=== PATIENT | female | born 1970 | race Caucasian/White ===

== ENCOUNTER 2017-07-01 10:16 | Emergency (ER) | payer MEDICAID ==
[2017-07-01] MEDS ORDERED: solu-MEDROL 125 MG IV ONE (10:18)
[2017-07-01] MEDS ORDERED: DUONEB 0.5-3 MG/3 ml Neb IH ONE ×2 (10:18→10:22)
[2017-07-01] MEDS ORDERED: Sodium Chloride 0.9% 1000 ML 1,000 ML IV STA (10:18)
[2017-07-01] MEDS ORDERED: PROVENTIL 2.5 MG/3 ML NEB IH ONE ×4 (10:18→12:09)
[2017-07-01] MEDS ORDERED: solu-MEDROL 125 MG ONE (10:26)
[2017-07-01] MEDS ORDERED: Sodium Chloride 0.9% 1000 ML 1,000 ML ONE (10:27)
[2017-07-01 10:31] LABS: Lactic Acid 1.1 (0.4-2.0); VBG BASE EXCESS 6.7 (-2.0-2.0); VBG CARBOXYHEMOGLOBIN 3.8 % T HGB (0.0-6.9); VBG HCO3- 31.3 meq/L (22-28); VBG HEMOGLOBIN 15.3; VBG O2 SATURATION 92.7 (95-100); VBG PCO2 43 mm/Hg (42-55); VBG POTASSIUM 3.7 (3.5-5.1); VBG pH 7.47 (7.32-7.42)
[2017-07-01 10:37] LABS: Granulocyte Absolute (ANC) 4.13 (1.4-6.9); Hematocrit 42.8 % (35-47); Mean Cell Volume 89.7 fl (78-100); Mean Corpuscular Hemoglobin 31.4 pg (26-32); Mean Platelet Volume 9.7 fl (6-9.5); Platelet Count 199 K/mm3 (150-450); Red Blood Count 4.77 M/mm3 (4.1-5.4); Red Cell Distribution Width 12.4 % (11.5-14.0); White Blood Count 6.8 K/mm3 (4.0-10.5)
--- NOTE | 2017-07-01 10:38 | ERPHSYRPT ---
- History of Present Illness Time Seen by Provider: 07/01/17 10:18 Source: patient, family Patient Subjective Stated Complaint: pt STATES SHE HAS BEEN SOB WITH A COUGH FOR THE PAST SEVERAL DAYS. Triage Nursing Assessment: PT PINK, WARM, DRY. LUNG SOUNDS WHEEZING THROUGHOUT. NONPRODUCTIVE COUGH. Physician History: CC: cough Hx: 47 y/o patient of NEYDA Leyva with cough and wheezing. She is a smoker. No longer takes her lung medications. She has been sick for 3-4 days with cough, wheezing. Fever on and Friday. No V/D. Some myalgias. No rash. Worsened dyspnea, wheezing so came to ER. She has hx of sarcoidosis. Prior hysterectomy. Symptoms moderate. Allergies/Adverse Reactions: lidocaine Adverse Reaction (Verified 07/01/17 10:24) Hx Tetanus, Diphtheria Vaccination/Date Given: Yes (UP TO DATE) Hx Influenza Vaccination/Date Given: No Hx Pneumococcal Vaccination/Date Given: No Immunizations Up to Date: Yes - Review of Systems Constitutional: Fever (last week), Malaise, No Chills Eyes: No Symptoms Ears, Nose, & Throat: Nose Congestion Respiratory: Cough, Dyspnea, Wheezing Cardiac: No Chest Pain Abdominal/Gastrointestinal: No Abdominal Pain, No Nausea, No Vomiting, No Diarrhea Genitourinary Symptoms: No Dysuria Skin: No Rash Neurological: No Headache All Other Systems: Reviewed and Negative - Past Medical History Pertinent Past Medical History: No - Past Surgical History Past Surgical History: Yes Female Surgical History: Hysterectomy - Social History Smoking Status: Current every day smoker How long have you smoked: 25 Exposure to second hand smoke: Yes Drug Use: none Patient Lives Alone: No - Female History Hx Now: No - Nursing Vital Signs Nursing Vital Signs: Initial Vital Signs Temperature 98.3 F 07/01/17 10:18 Pulse Rate 99 H 07/01/17 10:18 Respiratory Rate 28 H 07/01/17 10:18 Blood Pressure 160/94 07/01/17 10:18 O2 Sat by Pulse Oximetry 95 07/01/17 10:18 Pain Scale Pain Intensity 0 - Physical Exam General Appearance: alert Eye Exam: PERRL/EOMI Neck Exam: normal inspection, non-tender, supple Respiratory Exam: rhonchi, wheezing Cardiovascular/Chest Exam: normal heart sounds, regular rate/rhythm Abdominal/Gastrointestinal Exam: soft, No tenderness, No distention Extremity Exam: non-tender, normal range of motion, no calf tenderness, no pedal edema Neurologic Exam: alert, oriented x 3, cooperative, sensation nml, No motor deficits Skin Exam: warm, dry, No rash SpO2 Interpretation: normal SpO2: 95 Oxygen Delivery: Room Air - Course Nursing assessment & vital signs reviewed: Yes - Radiology Exams cxr X-ray Interpretation: Teleradiologist Report, Negative Ordered Tests: Active Orders 24 hr Category Date Time Status Feed Crusher STAT Care 07/01/17 10:18 Active IV Insertion STAT Care 07/01/17 10:18 Active Pulse Oximetry (ED) STAT Care 07/01/17 10:18 Active CHEST 1 VIEW (PORTABLE) Stat Exams 07/01/17 10:18 Completed CBC W DIFF Stat Lab 07/01/17 10:30 Completed CMP Stat Lab 07/01/17 10:30 Completed Lactic Acid Stat Lab 07/01/17 10:18 Results MAGNESIUM Stat Lab 07/01/17 10:30 Completed Manual Differential NC Stat Lab 07/01/17 10:30 Completed VENOUS BLOOD GAS Stat Lab 07/01/17 10:18 Results Respiratory Nebulizer STAT RT 07/01/17 10:19 Completed Respiratory Nebulizer STAT RT 07/01/17 11:12 Active Medication Summary Generic Name Dose Route Start Last Admin Trade Name Freq PRN Reason Stop Dose Admin Magnesium Sulfate/Dextrose 100 mls @ 100 mls/hr 07/01/17 11:15 07/01/17 11:49 Magnesium 1 Gm / 100 Ml D5w IV 07/01/17 13:14 100 mls/hr Q1H MAKENZIE Administration Discontinued Medications Generic Name Dose Route Start Last Admin Trade Name Freq PRN Reason Stop Dose Admin Albuterol Sulfate 2.5 mg 07/01/17 10:18 07/01/17 10:45 Proventil 2.5 Mg/3 Ml Neb IH 07/01/17 10:19 2.5 mg STAT ONE Administration Albuterol Sulfate Confirm 07/01/17 10:22 Proventil 2.5 Mg/3 Ml Neb Administered 07/01/17 10:23 Dose 2.5 mg IH .STK-MED ONE Albuterol Sulfate 2.5 mg 07/01/17 11:12 Proventil 2.5 Mg/3 Ml Neb IH 07/01/17 11:13 STAT ONE Albuterol Sulfate Confirm 07/01/17 12:09 Proventil 2.5 Mg/3 Ml Neb Administered 07/01/17 12:10 Dose 2.5 mg IH .STK-MED ONE Albuterol/Ipratropium 3 ml 07/01/17 10:18 07/01/17 10:30 Duoneb 0.5-3 Mg/3 Ml Neb IH 07/01/17 10:19 3 ml STAT ONE Administration Albuterol/Ipratropium Confirm 07/01/17 10:22 Duoneb 0.5-3 Mg/3 Ml Neb Administered 07/01/17 10:23 Dose 3 ml IH .STK-MED ONE Sodium Chloride 1,000 mls @ 999 mls/hr 07/01/17 10:18 07/01/17 10:27 Sodium Chloride 0.9% 1000 Ml IV 07/01/17 11:18 999 mls/hr .Q1H1M STA Administration Sodium Chloride Confirm 07/01/17 10:27 Sodium Chloride 0.9% 1000 Ml Administered 07/01/17 10:28 Dose 1,000 mls @ ud .ROUTE .STK-MED ONE Magnesium Sulfate Confirm 07/01/17 11:21 Magnesium Sulfate 1 Gm/2 Ml Vial Administered 07/01/17 11:22 Dose 2 gm .ROUTE .STK-MED ONE Methylprednisolone Sodium Succinate 125 mg 07/01/17 10:18 07/01/17 10:27 Solu-Medrol 125 Mg IV 07/01/17 10:19 125 mg STAT ONE Administration Methylprednisolone Sodium Succinate Confirm 07/01/17 10:26 Solu-Medrol 125 Mg Administered 07/01/17 10:27 Dose 125 mg .ROUTE .STK-MED ONE Lab/Rad Data: Laboratory Result Diagrams 07/01/17 10:30 07/01/17 10:30 Laboratory Results 07/01/17 07/01/17 07/01/17 Range/Units 10:30 10:30 10:30 WBC 6.8 (4.0-10.5) K/mm3 RBC 4.77 (4.1-5.4) M/mm3 Hgb 15.0 (12.0-16.0) gm/dl Hct 42.8 (35-47) % MCV 89.7 (78-100) fl MCH 31.4 (26-32) pg MCHC 35.0 (32-36) g/dl RDW 12.4 (11.5-14.0) % Plt Count 199 (150-450) K/mm3 MPV 9.7 H (6-9.5) fl Segmented Neutrophils 58 (36.0-66.0) % Lymphocytes (Manual) 36 (24-44) % Monocytes (Manual) 6 (0.0-12.0) % Differential Comment NORMAL Platelet Estimate NORMAL (NORMAL) VBG pH (7.32-7.42) VBG pCO2 at Pat Temp (42-55) mm/Hg VBG pO2 at Pat Temp VBG HCO3 (22-28) meq/L VBG O2 Sat (Melissa) (95-100) VBG Base Excess (-2.0-2.0) VBG Hemoglobin VBG Carboxyhemoglobin (0.0-6.9) % T HGB POC Potassium (3.5-5.1) Sodium 137 (136-145) mEq/L Potassium 3.6 (3.5-5.1) mEq/L Chloride 100 (98-107) mEq/L Carbon Dioxide 27.1 (21-32) mEq/L Anion Gap 13.7 (5-15) MEQ/L BUN 14 (9-20) mg/dL Creatinine 0.72 (0.55-1.30) mg/dl Estimated GFR > 60 ML/MIN Glucose 106 (70-110) MG/DL Lactic Acid (0.4-2.0) Calcium 9.1 (8.5-10.1) mg/dL Magnesium 2.1 (1.8-2.4) mg/dL Total Bilirubin 0.40 (0.2-1.0) mg/dL AST 41 H (15-37) U/L ALT 51 (12-78) U/L Alkaline Phosphatase 166 H (46-116) U/L Serum Total Protein 8.0 (6.4-8.2) gm/dL Albumin 3.8 (3.4-5.0) g/dL Influenza Type A Ag NEGATIVE (NEGATIVE) Influenza Type B Ag NEGATIVE (NEGATIVE) RSV (PCR) NEGATIVE (Negative) 07/01/17 Range/Units 10:18 WBC (4.0-10.5) K/mm3 RBC (4.1-5.4) M/mm3 Hgb (12.0-16.0) gm/dl Hct (35-47) % MCV (78-100) fl MCH (26-32) pg MCHC (32-36) g/dl RDW (11.5-14.0) % Plt Count (150-450) K/mm3 MPV (6-9.5) fl Segmented Neutrophils (36.0-66.0) % Lymphocytes (Manual) (24-44) % Monocytes (Manual) (0.0-12.0) % Differential Comment Platelet Estimate (NORMAL) VBG pH 7.47 H (7.32-7.42) VBG pCO2 at Pat Temp 43 (42-55) mm/Hg VBG pO2 at Pat Temp Pending VBG HCO3 31.3 H* (22-28) meq/L VBG O2 Sat (Melissa) 92.7 L (95-100) VBG Base Excess 6.7 H (-2.0-2.0) VBG Hemoglobin 15.3 VBG Carboxyhemoglobin 3.8 (0.0-6.9) % T HGB POC Potassium 3.7 (3.5-5.1) Sodium (136-145) mEq/L Potassium (3.5-5.1) mEq/L Chloride (98-107) mEq/L Carbon Dioxide (21-32) mEq/L Anion Gap (5-15) MEQ/L BUN (9-20) mg/dL Creatinine (0.55-1.30) mg/dl Estimated GFR ML/MIN Glucose (70-110) MG/DL Lactic Acid 1.1 (0.4-2.0) Calcium (8.5-10.1) mg/dL Magnesium (1.8-2.4) mg/dL Total Bilirubin (0.2-1.0) mg/dL AST (15-37) U/L ALT (12-78) U/L Alkaline Phosphatase (46-116) U/L Serum Total Protein (6.4-8.2) gm/dL Albumin (3.4-5.0) g/dL Influenza Type A Ag (NEGATIVE) Influenza Type B Ag (NEGATIVE) RSV (PCR) (Negative) - Progress Progress Note: 07/01/17 12:21 She is doing better after 3 nebs and steroids. She prefers to go h ome. Will release with instr. Counseled pt/family regarding: lab results, diagnosis, need for follow-up, rad results, smoking cessation - Departure Time of Disposition: 12:22 Departure Disposition: Home Clinical Impression: Acute exacerbation of chronic obstructive pulmonary disease (COPD), Sarcoidosis , Smoker Condition: Stable Critical Care Time: No Referrals: KOBE MONAHAN [Primary Care Provider] - Instructions: Chronic Obstructive Pulmonary Disease, Exacerbation of COPD (DC) , Quitting Smoking Additional Instructions: Rx prednisone. Rx doxycycline. Rx albuterol MDI. See NEYDA Leyva tomorrow at 11:15AM. Return for increased shortness of breath or problems. Stop smoking. Prescriptions: Albuterol Sulfate [Albuterol Sulfate Hfa] 2 puff IH Q4-6HPRN PRN #1 [email or web address] PRN Reason: cough or wheeze Doxycycline Hyclate 100 mg [Vibramycin 100 MG] 1 tab PO BID #20 tab Prednisone 20 mg [Deltasone 20 mg] 2 tab PO DAILY #10 tablet
[2017-07-01 10:57] LABS: ALBUMIN 3.8 g/dL (3.4-5.0); ALKALINE PHOSPHATASE 166 U/L (46-116); ANION GAP 13.7 MEQ/L (5-15); BLOOD UREA NITROGEN 14 mg/dL (9-20); CHLORIDE 100 mEq/L (98-107); Calcium 9.1 mg/dL (8.5-10.1); Carbon Dioxide 27.1 mEq/L (21-32); Creatinine 1 0.72 mg/dl (0.55-1.30); EST GLOMERULAR FILTRATION RATE > 60 ML/MIN; Glucose 106 MG/DL (70-110); MAGNESIUM 2.1 mg/dL (1.8-2.4); Potassium 3.6 mEq/L (3.5-5.1); SGOT/AST 41 U/L (15-37); SGPT/ALT 51 U/L (12-78); SODIUM 137 mEq/L (136-145)
[2017-07-01 10:59] LABS: Lymphocytes 36 % (24-44); Monocyte 6 % (0.0-12.0); Neutrophils 58 % (36.0-66.0); Platelet Estimate NORMAL (NORMAL); Total Cells Counted 100
--- NOTE | 2017-07-01 11:14 | XRAY ---
Indication: Cough. Dyspnea. Comparison: November 14, 2008. Portable chest is now clear. Heart and mediastinal structures within normal limits. Bony thorax intact. Impression: Nonacute chest.
[2017-07-01] MEDS ORDERED: Magnesium Sulfate 1 GM/2 ML VIAL ONE (11:21)
[2017-07-01] MEDS ORDERED: Magnesium 1 Gm / 100 Ml D5W*** 200 ML IV ONE (11:22)
[2017-07-01] MEDS: Magnesium 1 Gm / 100 Ml D5W*** 100 ML IV SCH ×2 (11:23→11:49)
[2017-07-01 12:07] LABS: INFLUENZA A NEGATIVE (NEGATIVE); INFLUENZA B NEGATIVE (NEGATIVE); RESPIRATORY SYNCTIAL VIRUS NEGATIVE (Negative)
[2017-07-01 12:27] VITALS: O2SAT 95
[2017-07-01 13:08] VITALS: BP 116/72; PULSE 89
== END 2017-07-01 13:06 | disposition home or self-care (01) ==
LOC: ED 10:16
DX: J44.1 Chronic obstructive pulmonary disease with (acute) exacerbation (principal); D86.9 Sarcoidosis, unspecified; F17.210 Nicotine dependence, cigarettes, uncomplicated
CPT/HCPCS: 36000; 36415; 71045; 80053; 82805; 83605; 83735; 85025; 87631; 93041; 94640; 96360; 96365; 96374; 99285; J2930; J3475; A9270-GY

== ENCOUNTER 2023-10-26 07:50 | Emergency (ER) | payer OTHER ==
[2023-10-26 08:08] VITALS: TEMP 96.8; O2SAT 97
[2023-10-26] MEDS ORDERED: TORAdol 30 mg Injection ONE (08:14)
[2023-10-26] MEDS: TORAdol 30 mg Injection IM ONE (08:19)
[2023-10-26] MEDS: Norflex 60 MG/2 ML IM ONE (08:22)
--- NOTE | 2023-10-26 08:30 | ERPHSYRPT ---
- History of Present Illness Time Seen by Provider: 10/26/23 08:24 Source: patient Exam Limitations: no limitations Patient Subjective Stated Complaint: Pt helped move a mattress 2 days ago and woke up yesterday with her back hurting Triage Nursing Assessment: Pt brought self to the ER, vitals wnl, rates pain as a 4/10 until she moves and then it is 9/10, pulses normal, skin n/w/d, denies pain with palpatation, reports that if she sits too long the pain goes in her hips as well, denies trauma, pt walked into the ER with a slow stable gait, appears to be in moderate pain Physician History: Pt helped move a mattress 2 days ago and woke up yesterday with her back hurting Patient is 53-year-old female with significant past medical history of arthritis, Hypertension was moving her mattress 2 days ago and yesterday she woke up with the lumbar area back pain which is mainly in the middle part of the lumbar spine area with some spasm on the side. She denies any urinary trouble. She has a hard time getting up and down. She denies any other injury. Timing/Duration: yesterday Method of Injury: lifting Quality: sharp, aching Back Pain Location: lumbar spine Severity of Pain-Max: moderate Severity of Pain-Current: moderate Modifying Factors: Improves With: nothing Associated Symptoms: denies symptoms Previous symptoms: no prior history Allergies/Adverse Reactions: lidocaine Adverse Reaction (Verified 10/26/23 08:08) Home Medications: Buspirone HCl 5 mg [Buspar 5 mg] 10 mg PO DAILY 10/26/23 [History] Lisinopril 20 mg [Zestril 20 MG] 20 mg PO DAILY 10/26/23 [History] Omeprazole 20 mg PO DAILY 10/26/23 [History] Hx Tetanus, Diphtheria Vaccination/Date Given: Yes (UP TO DATE) Hx Influenza Vaccination/Date Given: No Hx Pneumococcal Vaccination/Date Given: No Travel Risk - International Travel Have you traveled outside of the country in past 3 weeks: No - Emerging Infectious Disease Are you exhibiting symptoms associated with any current EIDs: No - Review of Systems Constitutional: No Fever, No Chills Eyes: No Symptoms Ears, Nose, & Throat: No Symptoms Respiratory: No Cough, No Dyspnea Cardiac: No Chest Pain, No Edema, No Syncope Abdominal/Gastrointestinal: No Abdominal Pain, No Nausea, No Vomiting, No Diarrhea Genitourinary Symptoms: No Dysuria Musculoskeletal: Back Pain, No Neck Pain Skin: No Symptoms, No Rash Neurological: No Dizziness, No Focal Weakness, No Sensory Changes Psychological: No Symptoms Endocrine: No Symptoms All Other Systems: Reviewed and Negative - Past Medical History Pertinent Past Medical History: Yes Cardiac History: Hypertension GI Medical History: GERD Psycho-Social History: Anxiety - Past Surgical History Past Surgical History: Yes Female Surgical History: Hysterectomy, Section - Social History Smoking Status: Current every day smoker How long have you smoked: 25 Exposure to second hand smoke: Yes Drug Use: marijuana Patient Lives Alone: No - Nursing Vital Signs Nursing Vital Signs: Initial Vital Signs Temperature 96.8 F 10/26/23 07:59 Pulse Rate 82 10/26/23 07:59 Blood Pressure 125/80 10/26/23 07:59 O2 Sat by Pulse Oximetry 97 10/26/23 07:59 Pain Scale Pain Intensity [] 4 Pain Intensity 4 - Physical Exam General Appearance: no apparent distress, alert Eye Exam: PERRL/EOMI, eyes nml inspection Neck Exam: normal inspection, non-tender, supple, full range of motion, No meningismus, No midline tenderness Respiratory Exam: normal breath sounds, lungs clear, No respiratory distress Cardiovascular Exam: regular rate/rhythm, normal heart sounds Gastrointestinal Exam: soft, No tenderness, No mass Back Exam: decreased range of motion, muscle spasm, No CVA tenderness, No vertebral tenderness, No rash, No point tenderness Extremity Exam: normal inspection, normal range of motion, No calf tenderness, No pedal edema Neurologic Exam: alert, oriented x 3, cooperative, database dba II-XII nml as tested, normal mood/affect, nml station & gait, sensation nml, No motor deficits Skin Exam: normal color, warm, dry, No rash SpO2: 97 - Course Nursing assessment & vital signs reviewed: Yes - Radiology Exams L-Spine X-ray Interpretation: Interpreted by me, Reviewed by me Ordered Tests: Active Orders 24 hr Category Date Time Status LUMBAR COMPLETE (MIN 4 VIEWS) Stat Exams 10/26/23 08:31 Taken Medication Summary Discontinued Medications Generic Name Dose Route Start Last Admin Trade Name Freq PRN Reason Stop Dose Admin Droperidol 1.25 mg 10/26/23 08:16 10/26/23 08:22 Droperidol 5 Mg/2 Ml Vial IM 10/26/23 08:17 1.25 mg STAT ONE Administration Droperidol Confirm 10/26/23 08:20 Droperidol 5 Mg/2 Ml Vial Administered 10/26/23 08:21 Dose 5 mg .ROUTE .STK-MED ONE Ketorolac Tromethamine 60 mg 10/26/23 08:10 10/26/23 08:19 Ketorolac Tromethamine 30 Mg/Ml Inj IM 10/26/23 08:11 60 mg STAT ONE Administration Ketorolac Tromethamine Confirm 10/26/23 08:14 Ketorolac Tromethamine 30 Mg/Ml Inj Administered 10/26/23 08:15 Dose 60 mg .ROUTE .STK-MED ONE Orphenadrine Citrate 60 mg 10/26/23 08:10 10/26/23 08:22 Orphenadrine Citrate 60 Mg/2 Ml Vial IM 10/26/23 08:11 Not Given STAT ONE - Progress Progress: improved, pain not gone completely Counseled pt/family regarding: diagnosis, need for follow-up, rad results Medical Desision Making - Diagnostic Testing Diagnostic test were ordered, analyzed, and reviewed by me: Yes Radiological Interpretation: Interpreted by me, Reviewed by me - Risk of complications Minimal Risk: Minimal risk of morbidity - Departure Departure Disposition: Home Clinical Impression: Acute lumbar back pain Qualifiers: Back pain laterality: midline Sciatica presence: without sciatica Qualified Code(s): M54.50 - Low back pain, unspecified Condition: Stable Critical Care Time: No Referrals: CONNOR ROCA NP [Primary Care Provider] - Follow Up with PCP/3 days Instructions: Low Back Pain (DC) Additional Instructions: Discharge/Care Plan DARIUSSHRUTI CHERRY was seen on 10/26/23 in the Emergency Room. The patient was counseled regarding Diagnosis,Lab results, Imaging studies, need for follow up and when to return to the Emergency Room. Prescriptions given: Discharge Note I have spoken with the patient and/or caregivers. I have explained the patient's condition, diagnosis and treatment plan based on the information available to me at this time. I have answered the patient's and/or caregiver's questions and addressed any concerns. The patient and/or caregivers have as good understanding of the patient's diagnosis, condition and treatment plan as can be expected at this point. The vital signs have been stable. The patient's condition is stable and appropriate for discharge from the emergency department. The patient will pursue further outpatient evaluation with the primary care physician or other designated or consulting physician as outlined in the disc harge instructions. The patient and/or caregivers are agreeable to this plan of care and follow-up instructions have been explained in detail. The patient and/or caregivers have received these instruction. The patient/and or caregivers are aware that any significant change in condition or worsening of symptoms should prompt an immediate return to this or the closest emergency department or call 911. SHRUTI MCCOY was seen on 10/26/23 n the Emergency Room. At that time you were treated for an emergent condition, during your visit Laboratory, Radiology and/or other procedures may have been ordered. It is very important that you follow-up with your Primary Care Physician CONNOR ROCA within the next 24-48 hours to review your Emergency Room visit and the final results of testing that was ordered. Some test results such as Urine Cultures, Blood Cultures, and other cultures if ordered will not be finalized for 24-48 hours. If you do not have a Primary Care Provider please call the medical records department at [phone] ext [phone] to obtain a copy of your results or you may sign into our patient portal to obtain these results by visiting us @ [email or web address] and completing the following steps: 1. Click on the Patient Portal link 2. Click the Patient Self Enrollment Link to complete the enrollment form and entering your 3. Once the enrollment form is completed you will receive an email with a temporary ID and password at the email address you provided. 4. Next choose a user name and password. Your user name must be at least 4 characters long and your password must be at least 4 characters long. 5. Choose a security question from the list and provide your answer to the question. If you already have signed into the Health Portal you may access your Health Care Information 06/01 by the following steps: 1. Login to our website @ [email or web address] 2. Enter your original user name and password. FAQS The [facility] Portal is an online tool that contains your Lab Results, Radi ology Reports, Visit History, Discharge Instructions and Health Summary Lab and Radiology Results will not be available for 72 hours on the portal. The Portal is a secure site, passwords are encryted and URLs are re-written so they cannot be copied and pasted. You and authorized family members are the only ones who can access your Portal. Also there is a timeout feature that protects your information if you leave the Portal page open. If you have technical difficulty please use the Contact Us link on the page this will allow you to submit any questions you have regarding the Portal or you may contact the Medical Record Department at [phone]. Prescriptions: Cyclobenzaprine HCl 10 mg [Flexeril 10 MG] 10 mg PO TID #30 tablet Naproxen 500 mg [Naprosyn 500 MG] 500 mg PO BIDAC #30 tablet
[2023-10-26 09:08] VITALS: BP 134/89
[2023-10-26 09:09] VITALS: PULSE 75; RESP 16
--- NOTE | 2023-10-26 17:49 | XRAY ---
Indication: Pain following lifting injury. Comparison: None 5 view lumbar spine demonstrates 5 lumbar segments in normal alignment with minimal L4-S1 disc space narrowing, minimal aortic calcifications, and mild diffuse colonic fecal stasis. No other bony, articular, or soft tissue abnormalities.
== END 2023-10-26 09:09 | disposition home or self-care (01) ==
LOC: ED 07:50
DX: M54.50 Low back pain, unspecified (principal); I10 Essential (primary) hypertension; Z79.899 Other long term (current) drug therapy; Z72.0 Tobacco use
CPT/HCPCS: 72110; 96372; 99283; J1885

== ENCOUNTER 2024-08-23 16:59 | Observation (INO) | payer OTHER ==
--- NOTE | 2024-08-23 17:59 | ERPHSYRPT ---
- History of Present Illness Time Seen by Provider: 08/23/24 17:58 Source: patient, family Exam Limitations: no limitations Patient Subjective Stated Complaint: Pt states "I habe pneumonia and I am still coughing and I get really short of breath and it really hurts when I cough, feels like fire going up into my neck. I was also given lasix for having fluid around my lungs and I have taken 3 the past three days and I am not peeing very much and I called my and dr. Al told me to come here." Triage Nursing Assessment: Pt presented alert and oriented X 3, skin pwd. Pt ambulates with an upright steady gait, able to speak in clear full sentences. pt resting comfortably on the bed. Pt slightly tachypneic and had SpO2 of 88% initially on room air, pt was placed on 2 lpm supplimental O2 Physician History: This is a 54-year-old white female patient who presents to the emergency department by private vehicle accompanied by family member with a complaint of worsening shortness of breath over the last couple of days. Patient does not ordinarily wear oxygen. On arrival to the emergency department she had a room air oxygen saturation level of 88%. She was placed on 2 L of oxygen via nasal cannula and her oxygen saturation levels went up to approximately 93%. Patient was recently diagnosed with multifocal pneumonia based on a CT scan that was performed approximately 5 days ago at [facility]. She was placed on Levaquin antibiotic. Patient also has stage III melanoma and is receiving chemotherapy for this. Patient does not have chest pain. However, when she coughs she does feel pain in the chest that goes up into her neck on the left side. Patient has a history of gastroesophageal reflux disease, hypertension and anxiety. She has no abdominal pain. She has not had fevers. She has no nausea vomiting or diarrhea symptoms. Patient has a nebulizer machine and the medicine (albuterol) but she has not been using this machine. Timing/Duration: day(s) (In the last couple of days symptoms of shortness of breath are worsening), worse Cough Quality/Degree: mild, dry cough Possible Cause: occasional episodes Modifying Factors: Improves With: coughing Associated Symptoms: chest pain/soreness (With coughing), cough, shortness of breath Allergies/Adverse Reactions: lidocaine Adverse Reaction (Verified 10/26/23 08:08) Home Medications: Buspirone HCl 5 mg [Buspar 5 mg] 10 mg PO DAILY 10/26/23 [History] Lisinopril 20 mg [Zestril 20 MG] 20 mg PO DAILY 10/26/23 [History] Omeprazole 20 mg PO DAILY 10/26/23 [History] Levofloxacin [Levofloxacin 500 MG Tablet] 500 mg PO DAILY 08/23/24 [H istory] Hx Tetanus, Diphtheria Vaccination/Date Given: Yes (UP TO DATE) Hx Influenza Vaccination/Date Given: No Hx Pneumococcal Vaccination/Date Given: No Immunizations Up to Date: No Travel Risk - International Travel Have you traveled outside of the country in past 3 weeks: No - Emerging Infectious Disease Are you exhibiting symptoms associated with any current EIDs: Yes Symptoms: Cough: New Onset, Shortness of Breath (With coughing) - Review of Systems Constitutional: No Symptoms Eyes: No Symptoms Ears, Nose, & Throat: No Symptoms Respiratory: Cough, Dyspnea (With coughing) Cardiac: Chest Pain (With coughing) Abdominal/Gastrointestinal: No Symptoms Genitourinary Symptoms: No Symptoms Musculoskeletal: No Symptoms Skin: No Symptoms Neurological: No Symptoms Psychological: No Symptoms Endocrine: No Symptoms Hematologic/Lymphatic: No Symptoms Immunological/Allergic: No Symptoms All Other Systems: Reviewed and Negative - Past Medical History Pertinent Past Medical History: Yes Neurological History: No Pertinent History ENT History: No Pertinent History Cardiac History: Hypertension Respiratory History: Asthma, COPD Endocrine Medical History: No Pertinent History Musculoskeletal History: No Pertinent History GI Medical History: No Pertinent History History: No Pertinent History Psycho-Social History: Anxiety, Depression Female Reproductive Disorders: No Pertinent History - Past Surgical History Past Surgical History: Yes Female Surgical History: Hysterectomy, Section Other Surgical History: stage 3 melanoma removed from right arm - Social History Smoking Status: Former smoker Exposure to second hand smoke: Yes Drug Use: marijuana - Social Determinants of Health Will the patient participate in the screening: Yes Do you worry about a steady place to live?: No Do you have any problems with any of the following?: No known problems In the past 12 months,have you had to go without utilities?: No Transportation Issues: No Has anyone in your support network made you feel unsafe?: No Have you or anyone in your house had to go w/o enough food: No - Nursing Vital Signs Nursing Vital Signs: Initial Vital Signs Temperature 98.7 F 08/23/24 17:38 Pulse Rate 106 H 08/23/24 17:38 Respiratory Rate 22 08/23/24 17:38 Blood Pressure 125/80 08/23/24 17:38 O2 Sat by Pulse Oximetry 96 08/23/24 17:38 Pain Scale Pain Intensity 0 - Physical Exam General Appearance: no apparent distress, alert, anxiety Eye Exam: PERRL/EOMI, eyes nml inspection Ears, Nose, Throat Exam: normal ENT inspection, moist mucous membranes Neck Exam: normal inspection, non-tender, supple, full range of motion Respiratory Exam: respiratory distress, airway intact, rhonchi (Bilateral diffuse mild), No chest tenderness, No accessory muscle use Cardiovascular Exam: tachycardia (Mild) Gastrointestinal/Abdomen Exam: soft, normal bowel sounds, No tenderness Pelvic Exam: not done Rectal Exam: not done Back Exam: normal inspection, normal range of motion, No CVA tenderness, No vertebral tenderness Extremity Exam: normal inspection, normal range of motion, pelvis stable Neurologic Exam: alert, oriented x 3, cooperative, department director II-XII nml as tested, normal mood/affect, nml cerebellar function, nml station & gait, sensation nml Skin Exam: normal color, warm, dry Lymphatic Exam: No adenopathy SpO2 Interpretation: hypoxic SpO2: 88 O2 Delivery: Room Air - Course Nursing assessment & vital signs reviewed: Yes EKG Interpreted by Me: RATE (100), Sinus Rhythm, NORMAL AXIS, NORMAL INTERVALS, NORMAL QRS, Other (This patient has no acute ischemic changes on today's twelve- lead EKG. QTc is 439) Ordered Tests: Active Orders 24 hr Category Date Time Status EKG-ER Only STAT Care 08/23/24 17:59 Active IV Insertion STAT Care 08/23/24 17:59 Active Pulse Oximetry (ED) STAT Care 08/23/24 17:59 Active CHEST 1 VIEW (PORTABLE) Stat Exams 08/23/24 17:59 Taken CHEST WITH CONTRAST [CT] Stat Exams 08/23/24 20:16 Taken BLOOD CULTURE Stat Lab 08/23/24 18:20 Received CBC W DIFF Stat Lab 08/23/24 18:15 Completed CMP Stat Lab 08/23/24 18:15 Completed D-DIMER QUANTITATIVE Stat Lab 08/23/24 18:15 Completed Lactic Acid Stat Lab 08/23/24 17:59 Completed MAGNESIUM Stat Lab 08/23/24 18:15 Completed NT PRO BNPII Stat Lab 08/23/24 18:15 Completed TROPONIN Q4H Lab 08/23/24 18:15 Completed TROPONIN Q4H Lab 08/24/24 02:00 Ordered Respiratory Therapy Assessment DAILY RT 08/23/24 21:02 Active Medication Summary Generic Name Dose Route Start Last Admin Trade Name Freq PRN Reason Stop Dose Admin Sodium Chloride 500 mls @ 100 mls/hr 08/23/24 20:15 08/23/24 20:21 Sodium Chloride 0.9% 500 Ml IV 08/24/24 01:14 100 mls/hr .Q5H ONE Administration Discontinued Medications Generic Name Dose Route Start Last Admin Trade Name Freq PRN Reason Stop Dose Admin Albuterol/Ipratropium Confirm 08/23/24 20:46 Ipratropium/Albuterol Sulfate 3 Ml Ampul.Neb Administered 08/23/24 20:47 Dose 3 ml IH .STK-MED ONE Albuterol/Ipratropium 3 ml 08/23/24 20:50 08/23/24 21:00 Ipratropium/Albuterol Sulfate 3 Ml Ampul.Neb IH 08/23/24 20:51 3 ml STAT ONE Administration Ceftriaxone Sodium 1 gm in 100 mls @ 200 mls/hr 08/23/24 20:15 08/23/24 20:51 Rocephin 1 Gm / 100 Ml Nacl IV 08/23/24 20:44 Infused STAT ONE Infusion Ceftriaxone Sodium Confirm 08/23/24 20:19 Rocephin 1 Gm / 100 Ml Nacl Administered 08/23/24 20:20 Dose 1 gm in 100 mls @ ud IV .STK-MED ONE Sodium Chloride Confirm 08/23/24 20:19 Sodium Chloride 0.9% 500 Ml Administered 08/23/24 20:20 Dose 500 mls @ ud IV .STK-MED ONE Lab/Rad Data: Laboratory Result Diagrams 08/23/24 18:15 08/23/24 18:15 Laboratory Results 08/23/24 08/23/24 08/23/24 Range/Units 18:20 18:15 18:15 WBC (3.98-10.04) x10^3/uL RBC (3.93-5.22) x10^6/uL Hgb (11.2-15.7) g/dL Hct (34.1-44.9) % MCV (79.4-94.8) fL MCH (25.6-32.2) pg MCHC (32.2-35.5) g/dL RDW (11.7-14.4) % Plt Count (182-369) x10^3/uL MPV (9.4-12.3) fL Gran % (34.0-71.1) % Immature Gran % (Auto) (0.001-0.429) % Nucleat RBC Rel Count (0.00-0.2) % Eos # (Auto) (0.04-0.36) x10^3/uL Immature Gran # (Auto) (0.001-0.031) x10^3u/L Absolute Lymphs (auto) (1.18-3.74) x10^3/uL Absolute Monos (auto) (0.24-0.86) x10^3/uL Absolute Nucleated RBC (0.00-0.012) x10^3u/L Lymphocytes % (19.3-51.7) % Monocytes % (4.7-12.5) % Eosinophils % (0.7-5.8) % Basophils % (0.1-1.2) % Absolute Granulocytes (1.56-6.13) x10^3/uL Basophils # (0.01-0.08) x10^3/uL D-Dimer > 35.20 H* (0.0-0.50) mg/L Sodium (135-145) mmol/L Potassium (3.5-5.1) mmol/L Chloride (98-107) mmol/L Carbon Dioxide (22-30) mmol/L Anion Gap (5-15) MEQ/L BUN (7-17) mg/dL Creatinine (0.52-1.04) mg/dL Estimated GFR ML/MIN Glucose (74-106) mg/dL Lactic Acid (0.4-2.0) Calcium (8.4-10.2) mg/dL Magnesium (1.6-2.3) mg/dL Total Bilirubin (0.2-1.3) mg/dL AST (14-36) U/L ALT (0-35) U/L Alkaline Phosphatase (38-126) U/L Troponin I 0.018 (0.000-0.033) ng/mL NT-Pro-B Natriuret Pep 130 (<300) pg/mL Serum Total Protein (6.3-8.2) g/dL Albumin (3.5-5.0) g/dL Influenza Type A Ag NEGATIVE (NEGATIVE) Influenza Type B Ag NEGATIVE (NEGATIVE) RSV (PCR) NEGATIVE (NEGATIVE) SARS-CoV-2 (PCR) NEGATIVE (NEGATIVE) 08/23/24 08/23/24 08/23/24 Range/Units 18:15 18:15 17:59 WBC 10.2 H (3.98-10.04) x10^3/uL RBC 4.27 (3.93-5.22) x10^6/uL Hgb 11.5 (11.2-15.7) g/dL Hct 35.6 (34.1-44.9) % MCV 83.4 (79.4-94.8) fL MCH 26.9 (25.6-32.2) pg MCHC 32.3 (32.2-35.5) g/dL RDW 14.1 (11.7-14.4) % Plt Count 319 (182-369) x10^3/uL MPV 8.6 L (9.4-12.3) fL Gran % 79.4 H (34.0-71.1) % Immature Gran % (Auto) 0.4 (0.001-0.429) % Nucleat RBC Rel Count 0.0 (0.00-0.2) % Eos # (Auto) 0.15 (0.04-0.36) x10^3/uL Immature Gran # (Auto) 0.04 H (0.001-0.031) x10^3u/L Absolute Lymphs (auto) 0.84 L (1.18-3.74) x10^3/uL Absolute Monos (auto) 0.98 H (0.24-0.86) x10^3/uL Absolute Nucleated RBC 0.00 (0.00-0.012) x10^3u/L Lymphocytes % 8.3 L (19.3-51.7) % Monocytes % 9.6 (4.7-12.5) % Eosinophils % 1.5 (0.7-5.8) % Basophils % 0.8 (0.1-1.2) % Absolute Granulocytes 8.08 H (1.56-6.13) x10^3/uL Basophils # 0.08 (0.01-0.08) x10^3/uL D-Dimer (0.0-0.50) mg/L Sodium 136 (135-145) mmol/L Potassium 3.4 L (3.5-5.1) mmol/L Chloride 98 (98-107) mmol/L Carbon Dioxide 28 (22-30) mmol/L Anion Gap 13.1 (5-15) MEQ/L BUN 16 (7-17) mg/dL Creatinine 0.63 (0.52-1.04) mg/dL Estimated GFR 104.1 ML/MIN Glucose 110 H (74-106) mg/dL Lactic Acid 1.3 (0.4-2.0) Calcium 8.4 (8.4-10.2) mg/dL Magnesium 2.1 (1.6-2.3) mg/dL Total Bilirubin 0.70 (0.2-1.3) mg/dL AST 46 H (14-36) U/L ALT 24 (0-35) U/L Alkaline Phosphatase 121 (38-126) U/L Troponin I (0.000-0.033) ng/mL NT-Pro-B Natriuret Pep (<300) pg/mL Serum Total Protein 6.8 (6.3-8.2) g/dL Albumin 3.3 L (3.5-5.0) g/dL Influenza Type A Ag (NEGATIVE) Influenza Type B Ag (NEGATIVE) RSV (PCR) (NEGATIVE) SARS-CoV-2 (PCR) (NEGATIVE) - Progress Progress: improved, re-examined Air Movement: fair Progress Note: 08/23/24 20:38 My medical decision making in the assignment of moderate complexity to this patient's medical issue today is based on review of the patient's past medical history, reviewed the patient's medication list, reviewed patient drug allergy list, history present illness and physical findings on examination. The workup of this patient includes placement of an intravenous line, CBC, CMP, troponin level, twelve-lead EKG, D-dimer level, chest x-ray, viral swabs. Differential diagnosis includes but is not limited to upper respiratory infection, pneumonia, pulmonary embolus, myocardial infarction, arrhythmias, v iral infection 08/23/24 20:40 I interpreted the patient's laboratory data results. The patient has a normal lactic acid level with a slightly elevated white count and left shift. Her BNP and troponin levels are normal. However, her D-dimer level is significantly elevated, over 35. This may be secondary to pneumonia. However, we will perform a CT scan of the chest with contrast to rule out or rule in a pulmonary embolus. I interpreted the patient's preliminary chest x-ray report. The patient has bilateral diffuse infiltrates. Infiltrate is worse on the left base. The final chest x-ray report was interpreted by the radiologist and I reviewed the impression. The impression states that he agrees with my assessment of bilateral diffuse infiltrates. However, he also states there are bibasilar small pleural effusions 08/23/24 22:[address] scan of the chest with contrast was interpreted by the radiologist and I reviewed the impression. The impression states no comparison films. He also states suboptimal contrast opacification with respiratory artifacts. This limits the PE exam. There is no obvious central pulmonary embolus. There is diffuse bilateral consolidation and nonconsolidating air space disease. This patient now has had 2 chest CTs of the chest with contrast that were both interpreted as not having pulmonary embolus. This second CT scan states that the contrast is suboptimal but they do not see obvious central pulmonary emboli present. 08/23/24 22:[address] Mendoza, the telemetry hospitalist at all and at this time. I reviewed the patient history, presenting complaint, physical findings on examination and workup results as well as her response to our intervention. He agrees that this patient can be placed in observation. We will place her on antibiotics and have respiratory therapy provide her nebulizer/breathing treatments. Blood Culture(s) Obtained: Yes Antibiotics given: Yes Counseled pt/family regarding: lab results, diagnosis, rad results Medical Desision Making - Independent Historian Additional History obtained from: Family - Diagnostic Testing Diagnostic test were ordered, analyzed, and reviewed by me: Yes Radiological Interpretation: Interpreted by me, Reviewed by me, Teleradiologist Report - Risk of complications The pt has a high risk of morbidity or mortality based on: Decision regarding hospitilization or escalation of hosp level of care - Departure Departure Disposition: Observation Clinical Impression: Hypoxia, Pneumonia Condition: Fair Critical Care Time: Yes Critical Care Time(excluding separately billable procedures): Critical 30-74 mins (45) Referrals: CONNOR ROCA NP [Primary Care Provider] - Follow up/PCP as directed
[2024-08-23 18:28] LABS: Absolute Neutrophil Ct (ANC) 8.08 x10^3/uL (1.56-6.13); BASOPHIL % 0.8 % (0.1-1.2); Basophil (Absolute #) 0.08 x10^3/uL (0.01-0.08); Eosinophil % 1.5 % (0.7-5.8); Eosinophil (Absolute #) 0.15 x10^3/uL (0.04-0.36); Hematocrit 35.6 % (34.1-44.9); Hemoglobin 11.5 g/dL (11.2-15.7); IMMATURE GRAN # 0.04 x10^3u/L (0.001-0.031); IMMATURE GRAN % 0.4 % (0.001-0.429); Lymphocyte (Absolute #) 0.84 x10^3/uL (1.18-3.74); Lymphocytes % 8.3 % (19.3-51.7); Mean Cell Volume 83.4 fL (79.4-94.8); Mean Corpuscular Hemoglobin 26.9 pg (25.6-32.2); Mean Corpuscular Hgb Concent. 32.3 g/dL (32.2-35.5); Mean Platelet Volume 8.6 fL (9.4-12.3); Monocyte (Absolute #) 0.98 x10^3/uL (0.24-0.86); Monocytes % 9.6 % (4.7-12.5); Neutrophil % 79.4 % (34.0-71.1); Platelet Count 319 x10^3/uL (182-369); Red Blood Count 4.27 x10^6/uL (3.93-5.22); Red Cell Distribution Width 14.1 % (11.7-14.4); White Blood Count 10.2 x10^3/uL (3.98-10.04)
[2024-08-23 18:42] LABS: ALBUMIN 3.3 g/dL (3.5-5.0); ANION GAP 13.1 MEQ/L (5-15); BILIRUBIN,TOTAL 0.7 mg/dL (0.2-1.3); Calcium 8.4 mg/dL (8.4-10.2); Creatinine 1 0.63 mg/dL (0.52-1.04); EST GLOMERULAR FILTRATION RATE 104.1 ML/MIN; MAGNESIUM 2.1 mg/dL (1.6-2.3); Potassium 3.4 mmol/L (3.5-5.1); Total Protein 6.8 g/dL (6.3-8.2)
[2024-08-23 18:53] LABS: TROPONIN 0.018 ng/mL (0.000-0.033)
[2024-08-23 19:04] LABS: INFLUENZA A NEGATIVE (NEGATIVE); INFLUENZA B NEGATIVE (NEGATIVE); RESPIRATORY SYNCTIAL VIRUS NEGATIVE (NEGATIVE); SARS-CoV-2 Xpert Express NEGATIVE (NEGATIVE)
[2024-08-23] MEDS ORDERED: ROCEPHIN 1 GM / 100 ML NaCl 1 GM/100 ML IVPB IV ONE (20:19)
[2024-08-23] MEDS ORDERED: Sodium Chloride 0.9% 500 ML 500 ML IV ONE (20:19)
[2024-08-23] MEDS: ROCEPHIN 1 GM / 100 ML NaCl 1 GM/100 ML IVPB IV ONE (20:21)
[2024-08-23] MEDS: Sodium Chloride 0.9% 500 ML 500 ML IV ONE (20:21)
[2024-08-23] MEDS ORDERED: DUONEB 0.5-3 MG/3 ml Neb IH ONE (20:46)
[2024-08-23] MEDS: DUONEB 0.5-3 MG/3 ml Neb IH ONE (21:00)
[2024-08-23] MEDS ORDERED: Zofran 4 MG/2 ML VIAL IV PRN (23:38)
[2024-08-24 02:26] LABS: Absolute Neutrophil Ct (ANC) 7.15 x10^3/uL (1.56-6.13); BASOPHIL % 0.6 % (0.1-1.2); Basophil (Absolute #) 0.05 x10^3/uL (0.01-0.08); Eosinophil % 0.9 % (0.7-5.8); Eosinophil (Absolute #) 0.08 x10^3/uL (0.04-0.36); Hematocrit 32.4 % (34.1-44.9); Hemoglobin 10.5 g/dL (11.2-15.7); IMMATURE GRAN # 0.03 x10^3u/L (0.001-0.031); IMMATURE GRAN % 0.3 % (0.001-0.429); Lymphocyte (Absolute #) 0.63 x10^3/uL (1.18-3.74); Lymphocytes % 7.1 % (19.3-51.7); Mean Cell Volume 83.7 fL (79.4-94.8); Mean Corpuscular Hemoglobin 27.1 pg (25.6-32.2); Mean Corpuscular Hgb Concent. 32.4 g/dL (32.2-35.5); Mean Platelet Volume 8.8 fL (9.4-12.3); Monocyte (Absolute #) 0.97 x10^3/uL (0.24-0.86); Monocytes % 10.9 % (4.7-12.5); Neutrophil % 80.2 % (34.0-71.1); Platelet Count 288 x10^3/uL (182-369); Red Blood Count 3.87 x10^6/uL (3.93-5.22); Red Cell Distribution Width 14.1 % (11.7-14.4); White Blood Count 8.9 x10^3/uL (3.98-10.04)
[2024-08-24 02:42] LABS: ALBUMIN 3.2 g/dL (3.5-5.0); ANION GAP 13.7 MEQ/L (5-15); BILIRUBIN,TOTAL 0.6 mg/dL (0.2-1.3); Calcium 7.9 mg/dL (8.4-10.2); Creatinine 1 0.57 mg/dL (0.52-1.04); EST GLOMERULAR FILTRATION RATE 106.6 ML/MIN; Potassium 3.3 mmol/L (3.5-5.1); Total Protein 6.6 g/dL (6.3-8.2)
[2024-08-24] MEDS: Sodium Chloride 0.9% 1000 ML 1,000 ML IV SCH (05:19)
[2024-08-24] MEDS: POTASSIUM CHLORIDE 20 mEq IN WATER 100ML 20 MEQ/100 ML BAG IV ONE (05:19)
--- NOTE | 2024-08-24 05:24 | PCM.HP ---
History of Present Illness - Chief Complaint Chief Complaint: hypoxia, pneumonia Date: 08/23/24 History of Present Illness: is a 54 year old female with a history of stage III melanoma (on chemotherapy), recently diagnosed multifocal pneumonia (based on a CT scan that was performed approximately 5 days ago at [facility], treated with Levaquin), gastroesophageal reflux disease, hypertension and anxiety, who now presented to the ED with worsening shortness of breath over the last couple of days. Patient does not ordinarily wear oxygen. On arrival to the emergency department she had a room air oxygen saturation level of 88%. She was placed on 2 L of oxygen via nasal cannula and her oxygen saturation levels went up to approximately 93%. Patient does not have chest pain. However, when she coughs she does feel pain in the chest that goes up into her neck on the left side. She has no abdominal pain. She has not had fevers. She has no nausea vomiting or diarrhea symptoms. Patient has a nebulizer machine and the medicine (albuterol) but she has not been using this machine. After treatment in the ED, the patient's dyspnea slightly improved. - Review of Systems Constitutional: No Symptoms Eyes: No Symptoms Ears, Nose, & Throat: No Symptoms Respiratory: Cough, Short Of Breath, Wheezing Cardiac: Chest Pain Abdominal/Gastrointestinal: No Symptoms Genitourinary Symptoms: No Symptoms Musculoskeletal: No Symptoms Skin: No Symptoms Neurological: No Symptoms Psychological: No Symptoms Endocrine: No Symptoms Hematologic/Lymphatic: No Symptoms Immunological/Allergic: No Symptoms All Other Systems: Reviewed and Negative Medications & Allergies Home Medications: Home Medication List Buspirone HCl 5 mg [Buspar 5 mg] 10 mg PO DAILY 10/26/23 [History Confirmed 08/23/24] Lisinopril 20 mg [Zestril 20 MG] 20 mg PO DAILY 10/26/23 [History Confirmed 08/23/24] Omeprazole 20 mg PO DAILY 10/26/23 [History Confirmed 08/23/24] Fluticasone Propion/Salmeterol [Fluticasone-Salmeterol 250-50] See Rx Ins tructions .ROUTE .COMPLEX 08/23/24 [History Confirmed 08/23/24] Levofloxacin [Levofloxacin 500 MG Tablet] 500 mg PO DAILY 08/23/24 [History Confirmed 08/23/24] Nivolumab [Opdivo] See Rx Instructions .ROUTE .COMPLEX 08/23/24 [History Confirmed 08/23/24] Tiotropium [place] [Spiriva Respimat] See Rx Instructions .ROUTE .COMPLEX 08/23/24 [History Confirmed 08/23/24] Allergies/Adverse Reactions: Allergies Allergy/AdvReac Type Severity Reaction Status Date / Time lidocaine AdvReac Verified 10/26/23 08:08 - Past Medical History Past Medical History: Yes Neurological History: No Pertinent History ENT History: No Pertinent History Cardiac History: Hypertension Respiratory History: Asthma, COPD Endocrine Medical History: No Pertinent History Musculoskelatal History: No Pertinent History GI Medical History: No Pertinent History History: No Pertinent History Pyscho-Social History: Anxiety, Depression Reproductive Disorders: No Pertinent History - Past Surgical History Past Surgical History: Yes Neuro Surgical History: No Pertinent History Cardiac History: No Pertinent History Respiratory Surgery: No Pertinent History GI Surgical History: No Pertinent History Genitourinary Surgical Hx: No Pertinent History Musculskeletal Surgical Hx: No Pertinent History Female Surgical History: Hysterectomy, Section Other Surgical History: stage 3 melanoma removed from right arm Significant Family History: no pertinent family hx - Social History Smoking Status: Former smoker How long have you smoked: 25 Exposure to second hand smoke: Yes Alcohol: None Drug Use: none - Social Determinants of Health Will the patient participate in the screening: Yes Do you worry about a steady place to live?: No Do you have any problems with any of the following?: No known problems In the past 12 months,have you had to go without utilities?: No Have you or anyone in your house had to go without enough: No Transportation Issues: No Has anyone in your support network made you feel unsafe?: No Does the patient want assistance with any of the above?: No - Physical Exam Vital Signs: Vital Signs - 24 hr Temp Pulse Resp BP BP Pulse Ox 08/24/24 01:36 104 H 20 91 L 08/24/24 00:02 97.3 F 102 H 18 131/78 94 L 08/24/24 00:00 97.3 F 104 H 18 131/78 96 08/23/24 23:00 88 L 08/23/24 23:00 104 H 23 145/84 92 L 08/23/24 22:45 97 H 28 H 144/86 92 L 08/23/24 22:30 100 H 26 H 142/94 92 L 08/23/24 22:15 101 H 24 130/88 94 L 08/23/24 22:00 104 H 15 145/86 93 L 08/23/24 21:45 102 H 29 H 147/79 91 L 08/23/24 21:30 102 H 26 H 137/75 91 L 08/23/24 21:15 103 H 25 H 140/76 90 L 08/23/24 21:02 105 H 15 92 L 08/23/24 21:00 105 H 22 125/77 94 L 08/23/24 20:58 103 H 21 129/74 94 L 08/23/24 20:30 130/78 08/23/24 20:15 102 H 28 H 129/72 93 L 08/23/24 20:00 99 H 22 116/75 94 L 08/23/24 19:45 97 H 24 105/73 93 L 08/23/24 19:30 99 H 25 H 130/71 93 L 08/23/24 19:15 96 H 26 H 114/72 93 L 08/23/24 19:00 106 H 26 H 120/69 94 L 08/23/24 18:31 96 08/23/24 18:30 99 H 24 121/70 92 L 08/23/24 18:00 103 H 19 119/72 94 L 08/23/24 17:45 100 H 29 H 127/73 96 08/23/24 17:38 98.7 F 106 H 22 125/80 88 L General Appearance: no apparent distress, alert Neurologic Exam: alert, oriented x 3, cooperative, 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, normal mood/affect, nml cerebellar function Eye Exam: PERRL/EOMI, eyes nml inspection Ears, Nose, Throat Exam: normal ENT inspection Neck Exam: normal inspection, non-tender, supple, full range of motion Respiratory Exam: airway intact, rhonchi Cardiovascular Exam: regular rate/rhythm, normal heart sounds, other Gastrointestinal/Abdomen Exam: normal bowel sounds Back Exam: normal range of motion Extremity Exam: normal inspection, normal range of motion Skin Exam: normal color Results - Labs Lab/Micro Results: Lab Results-Last 24 Hours 03/10/25 03/10/25 03/10/25 Range/Units 17:59 18:15 18:15 WBC 10.2 H (3.98-10.04) x10^3/uL RBC 4.27 (3.93-5.22) x10^6/uL Hgb 11.5 (11.2-15.7) g/dL Hct 35.6 (34.1-44.9) % MCV 83.4 (79.4-94.8) fL MCH 26.9 (25.6-32.2) pg MCHC 32.3 (32.2-35.5) g/dL RDW 14.1 (11.7-14.4) % Plt Count 319 (182-369) x10^3/uL MPV 8.6 L (9.4-12.3) fL Gran % 79.4 H (34.0-71.1) % Immature Gran % (Auto) 0.4 (0.001-0.429) % Nucleat RBC Rel Count 0.0 (0.00-0.2) % Eos # (Auto) 0.15 (0.04-0.36) x10^3/uL Immature Gran # (Auto) 0.04 H (0.001-0.031) x10^3u/L Absolute Lymphs (auto) 0.84 L (1.18-3.74) x10^3/uL Absolute Monos (auto) 0.98 H (0.24-0.86) x10^3/uL Absolute Nucleated RBC 0.00 (0.00-0.012) x10^3u/L Lymphocytes % 8.3 L (19.3-51.7) % Monocytes % 9.6 (4.7-12.5) % Eosinophils % 1.5 (0.7-5.8) % Basophils % 0.8 (0.1-1.2) % Absolute Granulocytes 8.08 H (1.56-6.13) x10^3/uL Basophils # 0.08 (0.01-0.08) x10^3/uL D-Dimer (0.0-0.50) mg/L Sodium 136 (135-145) mmol/L Potassium 3.4 L (3.5-5.1) mmol/L Chloride 98 (98-107) mmol/L Carbon Dioxide 28 (22-30) mmol/L Anion Gap 13.1 (5-15) MEQ/L BUN 16 (7-17) mg/dL Creatinine 0.63 (0.52-1.04) mg/dL Estimated GFR 104.1 ML/MIN Glucose 110 H (74-106) mg/dL Lactic Acid 1.3 (0.4-2.0) Calcium 8.4 (8.4-10.2) mg/dL Magnesium 2.1 (1.6-2.3) mg/dL Total Bilirubin 0.70 (0.2-1.3) mg/dL AST 46 H (14-36) U/L ALT 24 (0-35) U/L Alkaline Phosphatase 121 (38-126) U/L Troponin I (0.000-0.033) ng/mL NT-Pro-B Natriuret Pep (<300) pg/mL Serum Total Protein 6.8 (6.3-8.2) g/dL Albumin 3.3 L (3.5-5.0) g/dL Influenza Type A Ag (NEGATIVE) Influenza Type B Ag (NEGATIVE) RSV (PCR) (NEGATIVE) SARS-CoV-2 (PCR) (NEGATIVE) 08/23/24 08/23/24 08/23/24 Range/Units 18:15 18:15 18:20 WBC (3.98-10.04) x10^3/uL RBC (3.93-5.22) x10^6/uL Hgb (11.2-15.7) g/dL Hct (34.1-44.9) % MCV (79.4-94.8) fL MCH (25.6-32.2) pg MCHC (32.2-35.5) g/dL RDW (11.7-14.4) % Plt Count (182-369) x10^3/uL MPV (9.4-12.3) fL Gran % (34.0-71.1) % Immature Gran % (Auto) (0.001-0.429) % Nucleat RBC Rel Count (0.00-0.2) % Eos # (Auto) (0.04-0.36) x10^3/uL Immature Gran # (Auto) (0.001-0.031) x10^3u/L Absolute Lymphs (auto) (1.18-3.74) x10^3/uL Absolute Monos (auto) (0.24-0.86) x10^3/uL Absolute Nucleated RBC (0.00-0.012) x10^3u/L Lymphocytes % (19.3-51.7) % Monocytes % (4.7-12.5) % Eosinophils % (0.7-5.8) % Basophils % (0.1-1.2) % Absolute Granulocytes (1.56-6.13) x10^3/uL Basophils # (0.01-0.08) x10^3/uL D-Dimer > 35.20 H* (0.0-0.50) mg/L Sodium (135-145) mmol/L Potassium (3.5-5.1) mmol/L Chloride (98-107) mmol/L Carbon Dioxide (22-30) mmol/L Anion Gap (5-15) MEQ/L BUN (7-17) mg/dL Creatinine (0.52-1.04) mg/dL Estimated GFR ML/MIN Glucose (74-106) mg/dL Lactic Acid (0.4-2.0) Calcium (8.4-10.2) mg/dL Magnesium (1.6-2.3) mg/dL Total Bilirubin (0.2-1.3) mg/dL AST (14-36) U/L ALT (0-35) U/L Alkaline Phosphatase (38-126) U/L Troponin I 0.018 (0.000-0.033) ng/mL NT-Pro-B Natriuret Pep 130 (<300) pg/mL Serum Total Protein (6.3-8.2) g/dL Albumin (3.5-5.0) g/dL Influenza Type A Ag NEGATIVE (NEGATIVE) Influenza Type B Ag NEGATIVE (NEGATIVE) RSV (PCR) NEGATIVE (NEGATIVE) SARS-CoV-2 (PCR) NEGATIVE (NEGATIVE) 08/24/24 08/24/24 08/24/24 Range/Units 02:15 02:15 02:15 WBC 8.9 (3.98-10.04) x10^3/uL RBC 3.87 L (3.93-5.22) x10^6/uL Hgb 10.5 L (11.2-15.7) g/dL Hct 32.4 L (34.1-44.9) % MCV 83.7 (79.4-94.8) fL MCH 27.1 (25.6-32.2) pg MCHC 32.4 (32.2-35.5) g/dL RDW 14.1 (11.7-14.4) % Plt Count 288 (182-369) x10^3/uL MPV 8.8 L (9.4-12.3) fL Gran % 80.2 H (34.0-71.1) % Immature Gran % (Auto) 0.3 (0.001-0.429) % Nucleat RBC Rel Count 0.0 (0.00-0.2) % Eos # (Auto) 0.08 (0.04-0.36) x10^3/uL Immature Gran # (Auto) 0.03 (0.001-0.031) x10^3u/L Absolute Lymphs (auto) 0.63 L (1.18-3.74) x10^3/uL Absolute Monos (auto) 0.97 H (0.24-0.86) x10^3/uL Absolute Nucleated RBC 0.00 (0.00-0.012) x10^3u/L Lymphocytes % 7.1 L (19.3-51.7) % Monocytes % 10.9 (4.7-12.5) % Eosinophils % 0.9 (0.7-5.8) % Basophils % 0.6 (0.1-1.2) % Absolute Granulocytes 7.15 H (1.56-6.13) x10^3/uL Basophils # 0.05 (0.01-0.08) x10^3/uL D-Dimer (0.0-0.50) mg/L Sodium 134 L (135-145) mmol/L Potassium 3.3 L (3.5-5.1) mmol/L Chloride 99 (98-107) mmol/L Carbon Dioxide 25 (22-30) mmol/L Anion Gap 13.7 (5-15) MEQ/L BUN 13 (7-17) mg/dL Creatinine 0.57 (0.52-1.04) mg/dL Estimated GFR 106.6 ML/MIN Glucose 107 H (74-106) mg/dL Lactic Acid (0.4-2.0) Calcium 7.9 L (8.4-10.2) mg/dL Magnesium (1.6-2.3) mg/dL Total Bilirubin 0.60 (0.2-1.3) mg/dL AST 48 H (14-36) U/L ALT 23 (0-35) U/L Alkaline Phosphatase 116 (38-126) U/L Troponin I < 0.012 (0.000-0.033) ng/mL NT-Pro-B Natriuret Pep 137 (<300) pg/mL Serum Total Protein 6.6 (6.3-8.2) g/dL Albumin 3.2 L (3.5-5.0) g/dL Influenza Type A Ag (NEGATIVE) Influenza Type B Ag (NEGATIVE) RSV (PCR) (NEGATIVE) SARS-CoV-2 (PCR) (NEGATIVE) - Radiology Impressions Radiology Exams & Impressions: Radiology Procedures Category Date Time Status CHEST 1 VIEW (PORTABLE) Stat Exams 08/23/24 17:59 Taken CHEST WITH CONTRAST [CT] Stat Exams 08/23/24 20:16 Taken - Other Procedures and Tests Respiratory Therapy 08/23/24 21:02 Respiratory Therapy Assessment DAILY 08/23/24 23:38 Oxygen Nasal Cannula 2 lpm 08/24/24 03:32 Incentive Spirometry TID Assessment/Plan (1) Pneumonia Current Visit: Yes Status: Acute Assessment & Plan: Will change antibiotics from Levaquin to cefepime. Nebs. Spirometry. Code(s): J18.9 - PNEUMONIA, UNSPECIFIED ORGANISM (2) Hypoxia Current Visit: Yes Status: Acute Assessment & Plan: Wean O2 as tolerated. Code(s): R09.02 - HYPOXEMIA (3) Leukocytosis Current Visit: Yes Status: Acute Assessment & Plan: Antibiotics for pneumonia treatment. Trend WBC. Code(s): D72.829 - ELEVATED WHITE BLOOD CELL COUNT, UNSPECIFIED (4) Dyspnea Current Visit: Yes Status: Acute Assessment & Plan: Treatment as above with nebs and antibiotics. PT eval. Code(s): R06.00 - DYSPNEA, UNSPECIFIED Telemedicine Encounter - Telemedicine Encounter Telemedicine Encounter: "The entirety of this encounter was performed via Telemedicine" This visit was performed using real-time audio and video connection between my location and thepatients locationwith the assistance of a surrogateat the patients location. Written or verbal consent was obtained from the patient/guardian to perform this visit [email or web address]. Any patient questions regarding the telemedicine interaction were answered. Please note that this admission required 47 minutes to complete.
[2024-08-24] MEDS ORDERED: Spiriva 18 Mcg/Cap Inhaler IH ONE (06:45)
[2024-08-24] MEDS: NON-FORMULARY ITEM (Tiotropium Bromide [Spiriva Respimat] 4 GM Mist.Inhal) IH SCH (06:50)
[2024-08-24] MEDS: FLUTICASONE-SALMETEROL 250-50 IH SCH (06:50)
--- NOTE | 2024-08-24 08:43 | XRAY ---
Indication: Cough. Short of breath. Comparison: July 01, 2017 Portable chest demonstrates new marked diffuse bilateral patchy consolidating/nonconsolidating airspace disease with small left effusion. Heart not enlarged. Bony thorax intact.
--- NOTE | 2024-08-24 08:48 | XRAY ---
Indication: Hypoxia. Elevated d-dimer. Negative pulmonary embolus reported on outside CT chest report from [facility] dated August 18, 2024. Multiple contiguous axial images obtained through the chest using 100 cc Isovue 370 contrast and PE protocol. Comparison: None Suboptimal opacification pulmonary arteries and mild diffuse respiration artifact limits evaluation for pulmonary embolus. No obvious pulmonary embolus. Heart not enlarged. Aorta is normal in course and caliber. No pathologic mediastinal/hilar lymphadenopathy. Lungs demonstrates markedly diffuse bilateral consolidating and nonconsolidating airspace disease with tiny left effusion. Bony thorax intact. Limited upper abdomen unremarkable. Impression: Continued negative pulmonary embolus. Diffuse bilateral consolidating/nonconsolidating airspace disease with left effusion.
[2024-08-24] MEDS: Klor Con PO SCH (09:15)
[2024-08-24] MEDS ORDERED: NON-FORMULARY ITEM (Omeprazole [Omeprazole] 20 MG Capsule.Dr) PO SCH (10:00)
[2024-08-24] MEDS: Acidophilus TABLET PO SCH (10:07)
[2024-08-24] MEDS: Protonix 40MG Tablet PO SCH (10:07)
[2024-08-24] MEDS: ENOXAPARIN SODIUM SQ SCH (10:07)
[2024-08-24] MEDS: BUSPAR 5 MG PO SCH (10:07)
[2024-08-24] MEDS: Tums EX 750 MG PO SCH (10:08)
[2024-08-24] MEDS: Zestril 20 MG PO SCH (10:08)
[2024-08-24] MEDS: Maxipime 2 GM** 2 G in Dextrose 5%/Water IV Soln. 100ML PLUS BAG 100 ML IV SCH (10:10)
--- NOTE | 2024-08-24 10:25 | PCM.NOTE ---
Date and Time: 08/24/24 1018 Subjective Assessment: is a 54 year old female with a history of stage III melanoma (on chemotherapy), recently diagnosed multifocal pneumonia (based on a CT scan that was performed approximately 5 days ago at [facility], treated with Levaquin), gastroesophageal reflux disease, hypertension and anxiety. She pr esented to the ED on 08/23/24 with worsening shortness of breath over the last couple of days. Patient does not ordinarily wear oxygen. On arrival to the emergency department she had a room air oxygen saturation level of 88%. She was placed on 2 L of oxygen via nasal cannula and her oxygen saturation levels went up to approximately 93%. Patient does not have chest pain. However, when she coughs she does feel pain in the chest that goes up into her neck on the left side. She has no abdominal pain. She has not had fevers. She has no nausea vomiting or diarrhea symptoms. Patient has a nebulizer machine and the medicine (albuterol) but she has not been using this machine. After treatment in the ED, the patient's dyspnea slightly improved. Today she is feeling much better buit remains on 4L NC and baseline is room air. D-dimer 35.[address] negative for PE but does shows BLL pneumonia. ST eval ordered by admitting provider to eval for aspiration pneumonia. K+ 3.3 and replaced. Ca+ 8.1 and Tums BID started. Continue cefepime, proventil, spiriva for pneumonia. Lung sounds are clear today. WBC within normal limits. RT to wean oxygen. Pt denies CP, SOB, abd pain, N/V/D If oxygen can be weaned will likely d/c tomorrow. - Review of Systems Constitutional: No Fever, No Chills Eyes: No Symptoms Ears, Nose, & Throat: No Symptoms Respiratory: No Cough, No Short Of Breath Cardiac: No Chest Pain, No Edema, No Syncope Abdominal/Gastrointestinal: No Abdominal Pain, No Nausea, No Vomiting, No Diarrhea Genitourinary Symptoms: No Dysuria Musculoskeletal: No Back Pain, No Neck Pain Skin: No Rash Neurological: No Dizziness, No Focal Weakness, No Sensory Changes Psychological: No Symptoms Endocrine: No Symptoms Hematologic/Lymphatic: No Symptoms Immunological/Allergic: No Symptoms Objective Exam General Appearance: no apparent distress, alert Neurologic Exam: alert, oriented x 3, cooperative, normal mood/affect, nml cerebellar function, sensation nml, No motor deficits Skin Exam: normal color, warm, dry Eye Exam: PERRL, EOMI, eyes nml inspection Ears, Nose, Throat Exam: normal ENT inspection, pharynx normal, moist mucous membranes Neck Exam: normal inspection, non-tender, supple, full range of motion Respiratory Exam: normal breath sounds, lungs clear, No respiratory distress Cardiovascular Exam: regular rate/rhythm, normal heart sounds Gastrointestinal/Abdomen Exam: soft, No tenderness, No mass Extremity Exam: normal inspection, normal range of motion Back Exam: normal inspection, normal range of motion, No CVA tenderness, No vertebral tenderness Pelvic Exam: deferred Rectal Exam: deferred Objective Data Vital Signs: Vital Signs - 24 hr Temp Pulse Resp BP BP Pulse Ox 08/24/24 07:24 97.2 F 95 H 18 130/71 95 08/24/24 06:55 101 H 18 94 L 08/24/24 04:00 95.7 F 74 16 130/60 90 L 08/24/24 01:36 104 H 20 91 L 08/24/24 00:02 97.3 F 102 H 18 131/78 94 L 08/24/24 00:00 97.3 F 104 H 18 131/78 96 08/23/24 23:00 88 L 08/23/24 23:00 104 H 23 145/84 92 L 08/23/24 22:45 97 H 28 H 144/86 92 L 08/23/24 22:30 100 H 26 H 142/94 92 L 08/23/24 22:15 101 H 24 130/88 94 L 08/23/24 22:00 104 H 15 145/86 93 L 08/23/24 21:45 102 H 29 H 147/79 91 L 08/23/24 21:30 102 H 26 H 137/75 91 L 08/23/24 21:15 103 H 25 H 140/76 90 L 08/23/24 21:02 105 H 15 92 L 08/23/24 21:00 105 H 22 125/77 94 L 08/23/24 20:58 103 H 21 129/74 94 L 08/23/24 20:30 130/78 08/23/24 20:15 102 H 28 H 129/72 93 L 08/23/24 20:00 99 H 22 116/75 94 L 0310/25 19:45 97 H 24 105/73 93 L 08/23/24 19:30 99 H 25 H 130/71 93 L 08/23/24 19:15 96 H 26 H 114/72 93 L 08/23/24 19:00 106 H 26 H 120/69 94 L 08/23/24 18:31 96 08/23/24 18:30 99 H 24 121/70 92 L 08/23/24 18:00 103 H 19 119/72 94 L 08/23/24 17:45 100 H 29 H 127/73 96 08/23/24 17:38 98.7 F 106 H 22 125/80 88 L Pain Assessment - Last Documented Pain Intensity 0 Intake and Output: Intake & Output 08/21/24 08/22/24 08/23/24 08/24/24 10:59 11:59 11:59 11:59 Intake Total 1532 Output Total 400 Balance 1132 Weight 77.2 kg Lab Results: Lab Results-Last 24 Hours 08/23/24 08/23/24 08/23/24 Range/Units 17:59 18:15 18:15 WBC 10.2 H (3.98-10.04) x10^3/uL RBC 4.27 (3.93-5.22) x10^6/uL Hgb 11.5 (11.2-15.7) g/dL Hct 35.6 (34.1-44.9) % MCV 83.4 (79.4-94.8) fL MCH 26.9 (25.6-32.2) pg MCHC 32.3 (32.2-35.5) g/dL RDW 14.1 (11.7-14.4) % Plt Count 319 (182-369) x10^3/uL MPV 8.6 L (9.4-12.3) fL Gran % 79.4 H (34.0-71.1) % Immature Gran % (Auto) 0.4 (0.001-0.429) % Nucleat RBC Rel Count 0.0 (0.00-0.2) % Eos # (Auto) 0.15 (0.04-0.36) x10^3/uL Immature Gran # (Auto) 0.04 H (0.001-0.031) x10^3u/L Absolute Lymphs (auto) 0.84 L (1.18-3.74) x10^3/uL Absolute Monos (auto) 0.98 H (0.24-0.86) x10^3/uL Absolute Nucleated RBC 0.00 (0.00-0.012) x10^3u/L Lymphocytes % 8.3 L (19.3-51.7) % Monocytes % 9.6 (4.7-12.5) % Eosinophils % 1.5 (0.7-5.8) % Basophils % 0.8 (0.1-1.2) % Absolute Granulocytes 8.08 H (1.56-6.13) x10^3/uL Basophils # 0.08 (0.01-0.08) x10^3/uL D-Dimer (0.0-0.50) mg/L Sodium 136 (135-145) mmol/L Potassium 3.4 L (3.5-5.1) mmol/L Chloride 98 (98-107) mmol/L Carbon Dioxide 28 (22-30) mmol/L Anion Gap 13.1 (5-15) MEQ/L BUN 16 (7-17) mg/dL Creatinine 0.63 (0.52-1.04) mg/dL Estimated GFR 104.1 ML/MIN Glucose 110 H (74-106) mg/dL Lactic Acid 1.3 (0.4-2.0) Calcium 8.4 (8.4-10.2) mg/dL Magnesium 2.1 (1.6-2.3) mg/dL Total Bilirubin 0.70 (0.2-1.3) mg/dL AST 46 H (14-36) U/L ALT 24 (0-35) U/L Alkaline Phosphatase 121 (38-126) U/L Troponin I (0.000-0.033) ng/mL NT-Pro-B Natriuret Pep (<300) pg/mL Serum Total Protein 6.8 (6.3-8.2) g/dL Albumin 3.3 L (3.5-5.0) g/dL Influenza Type A Ag (NEGATIVE) Influenza Type B Ag (NEGATIVE) RSV (PCR) (NEGATIVE) SARS-CoV-2 (PCR) (NEGATIVE) 03/04/0908/23/24 08/23/24 Range/Units 18:15 18:15 18:20 WBC (3.98-10.04) x10^3/uL RBC (3.93-5.22) x10^6/uL Hgb (11.2-15.7) g/dL Hct (34.1-44.9) % MCV (79.4-94.8) fL MCH (25.6-32.2) pg MCHC (32.2-35.5) g/dL RDW (11.7-14.4) % Plt Count (182-369) x10^3/uL MPV (9.4-12.3) fL Gran % (34.0-71.1) % Immature Gran % (Auto) (0.001-0.429) % Nucleat RBC Rel Count (0.00-0.2) % Eos # (Auto) (0.04-0.36) x10^3/uL Immature Gran # (Auto) (0.001-0.031) x10^3u/L Absolute Lymphs (auto) (1.18-3.74) x10^3/uL Absolute Monos (auto) (0.24-0.86) x10^3/uL Absolute Nucleated RBC (0.00-0.012) x10^3u/L Lymphocytes % (19.3-51.7) % Monocytes % (4.7-12.5) % Eosinophils % (0.7-5.8) % Basophils % (0.1-1.2) % Absolute Granulocytes (1.56-6.13) x10^3/uL Basophils # (0.01-0.08) x10^3/uL D-Dimer > 35.20 H* (0.0-0.50) mg/L Sodium (135-145) mmol/L Potassium (3.5-5.1) mmol/L Chloride (98-107) mmol/L Carbon Dioxide (22-30) mmol/L Anion Gap (5-15) MEQ/L BUN (7-17) mg/dL Creatinine (0.52-1.04) mg/dL Estimated GFR ML/MIN Glucose (74-106) mg/dL Lactic Acid (0.4-2.0) Calcium (8.4-10.2) mg/dL Magnesium (1.6-2.3) mg/dL Total Bilirubin (0.2-1.3) mg/dL AST (14-36) U/L ALT (0-35) U/L Alkaline Phosphatase (38-126) U/L Troponin I 0.018 (0.000-0.033) ng/mL NT-Pro-B Natriuret Pep 130 (<300) pg/mL Serum Total Protein (6.3-8.2) g/dL Albumin (3.5-5.0) g/dL Influenza Type A Ag NEGATIVE (NEGATIVE) Influenza Type B Ag NEGATIVE (NEGATIVE) RSV (PCR) NEGATIVE (NEGATIVE) SARS-CoV-2 (PCR) NEGATIVE (NEGATIVE) 08/24/24 08/24/24 08/24/24 Range/Units 02:15 02:15 02:15 WBC 8.9 (3.98-10.04) x10^3/uL RBC 3.87 L (3.93-5.22) x10^6/uL Hgb 10.5 L (11.2-15.7) g/dL Hct 32.4 L (34.1-44.9) % MCV 83.7 (79.4-94.8) fL MCH 27.1 (25.6-32.2) pg MCHC 32.4 (32.2-35.5) g/dL RDW 14.1 (11.7-14.4) % Plt Count 288 (182-369) x10^3/uL MPV 8.8 L (9.4-12.3) fL Gran % 80.2 H (34.0-71.1) % Immature Gran % (Auto) 0.3 (0.001-0.429) % Nucleat RBC Rel Count 0.0 (0.00-0.2) % Eos # (Auto) 0.08 (0.04-0.36) x10^3/uL Immature Gran # (Auto) 0.03 (0.001-0.031) x10^3u/L Absolute Lymphs (auto) 0.63 L (1.18-3.74) x10^3/uL Absolute Monos (auto) 0.97 H (0.24-0.86) x10^3/uL Absolute Nucleated RBC 0.00 (0.00-0.012) x10^3u/L Lymphocytes % 7.1 L (19.3-51.7) % Monocytes % 10.9 (4.7-12.5) % Eosinophils % 0.9 (0.7-5.8) % Basophils % 0.6 (0.1-1.2) % Absolute Granulocytes 7.15 H (1.56-6.13) x10^3/uL Basophils # 0.05 (0.01-0.08) x10^3/uL D-Dimer (0.0-0.50) mg/L Sodium 134 L (135-145) mmol/L Potassium 3.3 L (3.5-5.1) mmol/L Chloride 99 (98-107) mmol/L Carbon Dioxide 25 (22-30) mmol/L Anion Gap 13.7 (5-15) MEQ/L BUN 13 (7-17) mg/dL Creatinine 0.57 (0.52-1.04) mg/dL Estimated GFR 106.6 ML/MIN Glucose 107 H (74-106) mg/dL Lactic Acid (0.4-2.0) Calcium 7.9 L (8.4-10.2) mg/dL Magnesium (1.6-2.3) mg/dL Total Bilirubin 0.60 (0.2-1.3) mg/dL AST 48 H (14-36) U/L ALT 23 (0-35) U/L Alkaline Phosphatase 116 (38-126) U/L Troponin I < 0.012 (0.000-0.033) ng/mL NT-Pro-B Natriuret Pep 137 (<300) pg/mL Serum Total Protein 6.6 (6.3-8.2) g/dL Albumin 3.2 L (3.5-5.0) g/dL Influenza Type A Ag (NEGATIVE) Influenza Type B Ag (NEGATIVE) RSV (PCR) (NEGATIVE) SARS-CoV-2 (PCR) (NEGATIVE) 08/24/24 Range/Units 02:15 WBC (3.98-10.04) x10^3/uL RBC (3.93-5.22) x10^6/uL Hgb (11.2-15.7) g/dL Hct (34.1-44.9) % MCV (79.4-94.8) fL MCH (25.6-32.2) pg MCHC (32.2-35.5) g/dL RDW (11.7-14.4) % Plt Count (182-369) x10^3/uL MPV (9.4-12.3) fL Gran % (34.0-71.1) % Immature Gran % (Auto) (0.001-0.429) % Nucleat RBC Rel Count (0.00-0.2) % Eos # (Auto) (0.04-0.36) x10^3/uL Immature Gran # (Auto) (0.001-0.031) x10^3u/L Absolute Lymphs (auto) (1.18-3.74) x10^3/uL Absolute Monos (auto) (0.24-0.86) x10^3/uL Absolute Nucleated RBC (0.00-0.012) x10^3u/L Lymphocytes % (19.3-51.7) % Monocytes % (4.7-12.5) % Eosinophils % (0.7-5.8) % Basophils % (0.1-1.2) % Absolute Granulocytes (1.56-6.13) x10^3/uL Basophils # (0.01-0.08) x10^3/uL D-Dimer (0.0-0.50) mg/L Sodium (135-145) mmol/L Potassium (3.5-5.1) mmol/L Chloride (98-107) mmol/L Carbon Dioxide (22-30) mmol/L Anion Gap (5-15) MEQ/L BUN (7-17) mg/dL Creatinine (0.52-1.04) mg/dL Estimated GFR ML/MIN Glucose (74-106) mg/dL Lactic Acid (0.4-2.0) Calcium (8.4-10.2) mg/dL Magnesium 2.3 (1.6-2.3) mg/dL Total Bilirubin (0.2-1.3) mg/dL AST (14-36) U/L ALT (0-35) U/L Alkaline Phosphatase (38-126) U/L Troponin I (0.000-0.033) ng/mL NT-Pro-B Natriuret Pep (<300) pg/mL Serum Total Protein (6.3-8.2) g/dL Albumin (3.5-5.0) g/dL Influenza Type A Ag (NEGATIVE) Influenza Type B Ag (NEGATIVE) RSV (PCR) (NEGATIVE) SARS-CoV-2 (PCR) (NEGATIVE) Radiology Exams: Radiology Procedures Category Date Time Status CHEST 1 VIEW (PORTABLE) Stat Exams 08/23/24 17:59 Completed CHEST WITH CONTRAST [CT] Stat Exams 08/23/24 20:16 Completed Assessment/Plan (1) Pneumonia Current Visit: Yes Status: Acute Assessment & Plan: - Cefepime, proventil, spiriva - ON 4lNC 94%- BL room air - RT wean O2 - IVF - CBC, CMP reviewed - BC x2 pending - WBC WNL - ST eval for aspiration pneumonia - CXR: Portable chest demonstrates new marked diffuse bilateral patchy consolidating/nonconsolidating airspace disease with small left effusion. Heart not enlarged. Bony thorax intact. - Chest CT: Impression: Continued negative pulmonary embolus. Diffuse bilateral consolidating/nonconsolidating airspace disease with left effusion. Code(s): J18.9 - PNEUMONIA, UNSPECIFIED ORGANISM (2) Dyspnea Current Visit: Yes Status: Acute Assessment & Plan: - Treatment as above with nebs and antibiotics. Code(s): R06.00 - DYSPNEA, UNSPECIFIED (3) Hypoxia Current Visit: Yes Status: Acute Assessment & Plan: - RT to wean O2 as tolerated. Code(s): R09.02 - HYPOXEMIA (4) Leukocytosis Current Visit: Yes Status: Resolved Assessment & Plan: - resolved VTE: Lovenox PPI: Protonix Next of KIN: Carlota Kaur- [phone] D/C plan: 1-2 days Code status: Full Code(s): D72.829 - ELEVATED WHITE BLOOD CELL COUNT, UNSPECIFIED
[2024-08-24] MEDS: TYLENOL 325 MG PO PRN (13:36)
[2024-08-24] MEDS ORDERED: FLUTICASONE-SALMETEROL 250-50 IH SCH (19:00)
[2024-08-24] MEDS: PROVENTIL 2.5 MG/3 ML NEB IH PRN (21:57)
[2024-08-25 06:00] LABS: Hematocrit 33.4 % (34.1-44.9); Hemoglobin 10.7 g/dL (11.2-15.7); Mean Cell Volume 83.9 fL (79.4-94.8); Mean Corpuscular Hemoglobin 26.9 pg (25.6-32.2); Mean Platelet Volume 9.3 fL (9.4-12.3); Platelet Count 325 x10^3/uL (182-369); Red Blood Count 3.98 x10^6/uL (3.93-5.22); Red Cell Distribution Width 14.2 % (11.7-14.4); White Blood Count 10.2 x10^3/uL (3.98-10.04)
[2024-08-25] MEDS: Spiriva 18 Mcg/Cap Inhaler IH SCH (06:29)
[2024-08-25] MEDS: FLUTICASONE-SALMETEROL 250-50 IH SCH ×2 (06:29→10:21)
[2024-08-25 06:36] LABS: ALBUMIN 3.3 g/dL (3.5-5.0); ANION GAP 14.8 MEQ/L (5-15); BILIRUBIN,TOTAL 0.7 mg/dL (0.2-1.3); Creatinine 1 0.56 mg/dL (0.52-1.04); EST GLOMERULAR FILTRATION RATE 107.1 ML/MIN; Potassium 4.6 mmol/L (3.5-5.1); Total Protein 6.8 g/dL (6.3-8.2)
--- NOTE | 2024-08-25 11:36 | PCM.DS ---
Discharge Summary Date of Admission: 08/23/24 23:32 Date of Discharge: 08/25/24 Admitting Physician: ASHTYN RYDER MD Primary Care Provider: CONNOR ROCA Allergies Allergies lidocaine Adverse Reaction (Verified 10/26/23 08:08) Hospital Summary - Hospital Course Hospital Course: 08/24/24 is a 54 year old female with a history of stage III melanoma (on chemotherapy), recently diagnosed multifocal pneumonia (based on a CT scan that was performed approximately 5 days ago at [facility], treated with Levaquin), gastroesophageal reflux disease, hypertension and anxiety. She presented to the ED on 08/23/24 with worsening shortness of breath over the last couple of days. Patient does not ordinarily wear oxygen. On arrival to the emergency department she had a room air oxygen saturation level of 88%. She was placed on 2 L of oxygen via nasal cannula and her oxygen saturation levels went up to approximately 93%. Patient does not have chest pain. However, when she coughs she does feel pain in the chest that goes up into her neck on the left side. She has no abdominal pain. She has not had fevers. She has no nausea vomiting or diarrhea symptoms. Patient has a nebulizer machine and the medicine (albuterol) but she has not been using this machine. After treatment in the ED, the patient's dyspnea slightly improved. Today she is feeling much better buit remains on 4L NC and baseline is room air. D-dimer 35.[address] negative for PE but does shows BLL pneumonia. ST eval ordered by admitting provider to eval for aspiration pneumonia. K+ 3.3 and replaced. Ca+ 8.1 and Tums BID started. Continue cefepime, proventil, spiriva for pneumonia. Lung sounds are clear today. WBC within normal limits. RT to wean oxygen. Pt denies CP, SOB, abd pain, N/V/D If oxygen can be weaned will likely d/c tomorrow. 08/25/24 Pt resting in bed. Lung sounds are clear. Pt wanting to d/c today as she has 3 scans tomorrow at [facility] and wants to have these done to f/u on her melanoma dx. RT evaluated for home O2 and she will require 4lNC OP. Will continue PO antibiotics for pneumonia. She previoulsy failed levaquin so will not order that. She denies CP, Abd. pain, N/V/D. She has increased SOB with activity. She will need to f/u OP with PCP this week. - Vitals & Intake/Output Vital Signs: Vital Signs Temperature 96.2 F 08/25/24 08:00 Pulse Rate 115 H 08/25/24 08:00 Respiratory Rate 24 08/25/24 08:00 Blood Pressure 127/71 08/25/24 08:00 O2 Sat by Pulse Oximetry 91 L 08/25/24 08:00 Intake & Output: Intake & Output 08/22/24 08/23/24 08/24/24 08/25/24 11:59 11:59 11:59 11:59 Intake Total 1772 1460 Output Total 400 Balance 1372 1460 Weight 77.2 kg - Lab Result Diagrams: 08/25/24 06:00 08/25/24 06:00 Lab Results-Last 24 Hrs: Lab Results-Last 24 Hours 08/25/24 08/25/24 08/25/24 Range/Units 06:00 06:00 06:00 WBC 10.2 H (3.98-10.04) x10^3/uL RBC 3.98 (3.93-5.22) x10^6/uL Hgb 10.7 L (11.2-15.7) g/dL Hct 33.4 L (34.1-44.9) % MCV 83.9 (79.4-94.8) fL MCH 26.9 (25.6-32.2) pg MCHC 32.0 L (32.2-35.5) g/dL RDW 14.2 (11.7-14.4) % Plt Count 325 (182-369) x10^3/uL MPV 9.3 L (9.4-12.3) fL Sodium 135 (135-145) mmol/L Potassium 4.6 D (3.5-5.1) mmol/L Chloride 104 (98-107) mmol/L Carbon Dioxide 21 L (22-30) mmol/L Anion Gap 14.8 (5-15) MEQ/L BUN 9 (7-17) mg/dL Creatinine 0.56 (0.52-1.04) mg/dL Estimated GFR 107.1 ML/MIN Glucose 106 (74-106) mg/dL Calcium 8.0 L (8.4-10.2) mg/dL Magnesium 2.2 (1.6-2.3) mg/dL Total Bilirubin 0.70 (0.2-1.3) mg/dL AST 53 H (14-36) U/L ALT 23 (0-35) U/L Alkaline Phosphatase 129 H (38-126) U/L Serum Total Protein 6.8 (6.3-8.2) g/dL Albumin 3.3 L (3.5-5.0) g/dL Micro Results-Entire Visit: Microbiology 08/23/24 18:20 Blood Culture - Preliminary Blood 08/23/24 18:15 Blood Culture - Preliminary Blood - Radiology Exams Ordered Rad Exams-Entire Visit: Radiology Procedures Category Date Time Status CHEST 1 VIEW (PORTABLE) Stat Exams 08/23/24 17:59 Completed CHEST WITH CONTRAST [CT] Stat Exams 08/23/24 20:16 Completed - Procedures and Test Procedures and Tests throughout Hospitalization: Therapy Orders & Screens 08/23/24 21:02 Respiratory Therapy Assessment DAILY Comment: 08/23/24 23:38 Oxygen Nasal Cannula 2 lpm Comment: Respiratory Therapy Consult ONCE Comment: Reason For Exam: 08/24/24 02:11 ST Screen per Nursing Assess ONCE Comment: Protocol Order Physician Instructions: Greater than [address] Admission Screening Reason For Exam: Triggered on Admission Diagnosis: hypoxia, pneumonia CVA/Dysphagia/Aphasia: No Cognitive Deficits: No Dehydration/Nutrition Deficit: No Reflux: No Oral-Motor Difficulties: No Pneumonia: Yes Half-Way Resident: No Total Points: 5 08/24/24 03:32 Incentive Spirometry TID Comment: Diagnosis: hypoxia, pneumonia 08/24/24 03:38 ST Eval & Treat (MD Order) ROUTINE Comment: Physician Instructions: Reason For Exam: Evaluate: Yes Treat: Yes Reason for Eval: rule out occult dysphagia Diagnosis: hypoxia, pneumonia 08/24/24 10:23 RT Miscellaneous Order ROUTINE Comment: Physician Instructions: Keep Sat > 92% Reason For Exam: Wean O2- BL RA Diagnosis: hypoxia, pneumonia 08/25/24 09:14 Qualify for Home Oxygen TODAY Comment: Diagnosis: hypoxia, pneumonia Discharge Exam General Appearance: no apparent distress, alert Neurologic Exam: alert, oriented x 3, cooperative, normal mood/affect, nml cerebellar function, sensation nml, No motor deficits Eye Exam: PERRL, EOMI, eyes nml inspection Ears, Nose, Throat Exam: normal ENT inspection, pharynx normal, moist mucous membranes Neck Exam: normal inspection, non-tender, supple, full range of motion Respiratory Exam: normal breath sounds, lungs clear, No respiratory distress Cardiovascular Exam: regular rate/rhythm, normal heart sounds Gastrointestinal/Abdomen Exam: soft, No tenderness, No mass Pelvic Exam: deferred Rectal Exam: deferred Back Exam: normal inspection, normal range of motion, No CVA tenderness, No vertebral tenderness Extremity Exam: normal inspection, normal range of motion Skin Exam: normal color, warm, dry Final Diagnosis/Problem List - Final Discharge Diagnosis/Problem (1) Pneumonia Current Visit: Yes Status: Acute Code(s): J18.9 - PNEUMONIA, UNSPECIFIED ORGANISM (2) Dyspnea Current Visit: Yes Status: Acute Code(s): R06.00 - DYSPNEA, UNSPECIFIED (3) Hypoxia Current Visit: Yes Status: Acute Code(s): R09.02 - HYPOXEMIA (4) Leukocytosis Current Visit: Yes Status: Resolved Assessment & Plan: 1) Pneumonia Current Visit: Yes Status: Acute Assessment & Plan: - Cefepime, proventil, spiriva - ON 4lNC 94%- BL room air - RT wean O2 - IVF - CBC, CMP reviewed - BC x2 pending - WBC WNL - ST eval for aspiration pneumonia - CXR: Portable chest demonstrates new marked diffuse bilateral patchy consolidating/nonconsolidating airspace disease with small left effusion. Heart not enlarged. Bony thorax intact. - Chest CT: Impression: Continued negative pulmonary embolus. Diffuse bilateral consolidating/nonconsolidating airspace disease with left effusion. 08/25 - Lung sounds clear - Increased SOB with activity - Pt wanting to d/c today for OP scan tomorrow r/t melanoma dx - Pt qualified for home O2 4NC - Will send in oral antibiotics and breathing treatments for neb machine. - Today 4LNC93% - CBC, CMP reviewed Code(s): J18.9 - PNEUMONIA, UNSPECIFIED ORGANISM (2) Dyspnea Current Visit: Yes Status: Acute Assessment & Plan: - Treatment as above with nebs and antibiotics. Code(s): R06.00 - DYSPNEA, UNSPECIFIED (3) Hypoxia Current Visit: Yes Status: Acute Assessment & Plan: - RT to wean O2 as tolerated. Code(s): R09.02 - HYPOXEMIA (4) Leukocytosis Current Visit: Yes Status: Resolved Assessment & Plan: - WBC 10.2 Code(s): D72.829 - ELEVATED WHITE BLOOD CELL COUNT, UNSPECIFIED (5) Hypocalcemia Current Visit: Yes Status: Acute Assessment & Plan: - Ca+ 8.1- trend - Started Tums BID- continue OP x 5 days - Tele Code(s): E83.51 - HYPOCALCEMIA (6) Melanoma Current Visit: Yes Status: Chronic Assessment & Plan: - F/u OP with oncology - F/U for OP CT scans tomorrow Code(s): C43.9 - MALIGNANT MELANOMA OF SKIN, UNSPECIFIED - Discharge Discharge Date: 08/25/24 Disposition: Home, Self-Care Condition: Fair Prescriptions: New Calcium Carbonate 750 mg [Tums EX 750 MG] 750 mg PO BID 5 Days #10 tablet Albuterol 2.5 mg/3 ml Neb [Proventil 2.5 mg/3 ml Neb] 2.5 mg IH Q6H PRN PRN 7 Days #25 units PRN Reason: Shortness Of Breath/Wheezing cefuroxime axetiL [Cefuroxime] 500 mg PO BID 7 Days #14 tablet Doxycycline Hyclate 100 mg [Vibramycin 100 MG] 100 mg PO BID 5 Days #10 tab Continue Omeprazole 20 mg PO DAILY Lisinopril 20 mg [Zestril 20 MG] 20 mg PO DAILY Buspirone HCl 5 mg [Buspar 5 mg] 10 mg PO DAILY Tiotropium [place] [Spiriva Respimat] See Rx Instructions .ROUTE .COMPLEX Nivolumab [Opdivo] See Rx Instructions .ROUTE .COMPLEX Fluticasone Propion/Salmeterol [Fluticasone-Salmeterol 250-50] See Rx Instructions .ROUTE .COMPLEX Discontinued Levofloxacin [Levofloxacin 500 MG Tablet] 500 mg PO DAILY Follow up with: CONNOR ROCA NP [Primary Care Provider] - 09/02/24 9:30 am
[2024-08-25 11:38] VITALS: BP 119/69; PULSE 101; RESP 22; TEMP 97.9; O2SAT 93
== END 2024-08-25 13:05 | disposition home or self-care (01) ==
LOC: ED 16:59 → MED SURG 23:32
PROVIDERS: ADMIT Internal Medicine; ATTEND Internal Medicine
DX: J18.9 Pneumonia, unspecified organism (principal); R06.00 Dyspnea, unspecified; R09.02 Hypoxemia; D72.829 Elevated white blood cell count, unspecified; E83.51 Hypocalcemia; C34.90 Malignant neoplasm of unspecified part of unspecified bronchus or lung; I10 Essential (primary) hypertension; F41.9 Anxiety disorder, unspecified; K21.9 Gastro-esophageal reflux disease without esophagitis; Z79.899 Other long term (current) drug therapy
CPT/HCPCS: 0241U; 36415; 71045; 71260; 80053; 83605; 83735; 83880; 84484; 85025; 85027; 85379; 87040; 93005; 93268; 94640; 94760; 99285; 99291; G0378; J0692; J0696; J1650; J3480; J7609; Q3014; A9270-GY

== ENCOUNTER 2024-08-23 17:35 | Emergency (ER) | payer OTHER | END 2024-08-23 17:55 | disposition left against medical advice (07) | LOC: ED 17:35 | DX: Z53.21 Procedure and treatment not carried out due to patient leaving prior to being seen by health care provider (principal) ==

== ENCOUNTER 2024-08-31 20:11 | Emergency (ER) | payer OTHER ==
[2024-08-31 20:28] VITALS: TEMP 99.3
[2024-08-31] MEDS ORDERED: solu-MEDROL ONE (20:32)
--- NOTE | 2024-08-31 20:32 | ERPHSYRPT ---
- History of Present Illness Time Seen by Provider: 08/31/24 20:30 Source: patient Exam Limitations: no limitations Physician History: Patient is a 54-year-old female history of COPD requires 4 L nasal cannula daily presents to our emergency department for evaluation of shortness of breath and hypoxia. Patient was discharged from our hospital last Friday, 5 days ago. Patient was diagnosed and treated for pneumonia. Patient is on cefuroxime and doxycycline currently. Patient has been taking her antibiotics as prescribed. Patient states her symptoms have gotten worse since discharge. Patient states her O2 sat at home was in the 70s. No associated chest pain. No fever. No nausea vomiting or diaphoresis. Patient voices no other complaints or concerns at this time. Portions of this note were created with voice recognition technology. There may be grammatical, spelling, punctuation or sound alike errors Timing/Duration: day(s) (5 days) Activities at Onset: none Severity of Dyspnea-Max: severe Severity of Dyspnea-Current: moderate Possible Cause: occasional episodes Modifying Factors: Improves With: activity Associated Symptoms: denies symptoms Allergies/Adverse Reactions: lidocaine Adverse Reaction (Verified 08/31/24 20:13) Home Medications: Buspirone HCl 5 mg [Buspar 5 mg] 10 mg PO DAILY 10/26/23 [History] Lisinopril 20 mg [Zestril 20 MG] 20 mg PO DAILY 10/26/23 [History] Omeprazole 20 mg PO DAILY 10/26/23 [History] Fluticasone Propion/Salmeterol [Fluticasone-Salmeterol 250-50] See Rx Inst ructions .ROUTE .COMPLEX 08/23/24 [History] Nivolumab [Opdivo] See Rx Instructions .ROUTE .COMPLEX 08/23/24 [History] Tiotropium [place] [Spiriva Respimat] See Rx Instructions .ROUTE .COMPLEX 08/23/24 [History] Albuterol Sulfate [Proair Respiclick] 2 puffs IH Q6H PRN PRN 08/31/24 [History] Hx Tetanus, Diphtheria Vaccination/Date Given: Yes (UP TO DATE) Hx Influenza Vaccination/Date Given: No Hx Pneumococcal Vaccination/Date Given: No Travel Risk - Emerging Infectious Disease Are you exhibiting symptoms associated with any current EIDs: No - Review of Systems Constitutional: No Symptoms, No Fever, No Chills Eyes: No Symptoms Ears, Nose, & Throat: No Symptoms Respiratory: No Symptoms, No Cough, No Dyspnea Cardiac: No Symptoms, No Chest Pain, No Edema, No Syncope Abdominal/Gastrointestinal: No Symptoms, No Abdominal Pain, No Nausea, No Vomiting, No Diarrhea Genitourinary Symptoms: No Symptoms, No Dysuria Musculoskeletal: No Symptoms, No Back Pain, No Neck Pain Skin: No Symptoms, No Rash Neurological: No Symptoms, No Dizziness, No Focal Weakness, No Sensory Changes Psychological: No Symptoms Endocrine: No Symptoms Hematologic/Lymphatic: No Symptoms Immunological/Allergic: No Symptoms All Other Systems: Reviewed and Negative - Past Medical History GI Medical History: GERD Psycho-Social History: Anxiety - Past Surgical History Neuro Surgical History: No Pertinent History Cardiac: No Pertinent History Respiratory: No Pertinent History Gastrointestinal: No Pertinent History Genitourinary: No Pertinent History Musculoskeletal: No Pertinent History Female Surgical History: Hysterectomy, Section Significant Family History: no pertinent family hx - Social History Smoking Status: Current every day smoker - Social Determinants of Health Will the patient participate in the screening: Yes Do you worry about a steady place to live?: No In the past 12 months,have you had to go without utilities?: No Transportation Issues: No Has anyone in your support network made you feel unsafe?: No Have you or anyone in your house had to go w/o enough food: No - Nursing Vital Signs Nursing Vital Signs: Initial Vital Signs Temperature 99.3 F 08/31/24 20:14 Pulse Rate 118 H 08/31/24 20:14 Respiratory Rate 32 H 08/31/24 20:14 Blood Pressure 120/69 08/31/24 20:14 O2 Sat by Pulse Oximetry 72 L 08/31/24 20:14 Pain Scale Pain Intensity 0 - Physical Exam General Appearance: moderate distress, alert Eye Exam: PERRL/EOMI, eyes nml inspection Ears, Nose, Throat Exam: hearing grossly normal, normal ENT inspection, normal pharynx Neck Exam: normal inspection, supple Respiratory Exam: diminished breath sounds, rhonchi, wheezing Cardiovascular/Chest Exam: normal heart sounds, regular rate/rhythm Abdominal/Gastrointestinal Exam: soft, No tenderness, No distention, No mass Extremity Exam: non-tender, normal range of motion, normal inspection, no calf tenderness, no pedal edema Neurologic Exam: alert, oriented x 3, cooperative, fraud manager II-XII nml as tested, sensation nml, No motor deficits Skin Exam: normal color, warm, No dry Lymphatic Exam: No adenopathy SpO2 Interpretation: normal O2 Delivery: Room Air - Course Nursing assessment & vital signs reviewed: Yes EKG Interpreted by Me: RATE ([id number]), Sinus Tach, NORMAL AXIS, NORMAL INTERVALS, NORMAL QRS - Radiology Exams Chest X-ray Interpretation: Teleradiologist Report (Worsening bilateral pulmonary infiltrates as compared to most recent chest x-ray) Ordered Tests: Active Orders 24 hr Category Date Time Status Rotary Rig Engine Operator STAT Care 08/31/24 20:18 Active EKG-ER Only STAT Care 08/31/24 20:17 Active IV Insertion STAT Care 08/31/24 20:17 Active Pulse Oximetry (ED) STAT Care 08/31/24 20:17 Active CHEST 1 VIEW (PORTABLE) Stat Exams 08/31/24 20:33 Taken ARTERIAL BLOOD GASES Stat Lab 08/31/24 20:25 Completed BLOOD CULTURE Stat Lab 08/31/24 20:37 Received CBC W DIFF Stat Lab 08/31/24 20:30 Completed CMP Stat Lab 08/31/24 20:25 Completed Lactic Acid Stat Lab 08/31/24 20:25 Completed NT PRO BNPII Stat Lab 08/31/24 20:25 Completed TROPONIN Q4H Lab 08/31/24 20:25 Completed TROPONIN Q4H Lab 09/01/24 00:45 Ordered TROPONIN Q4H Lab 09/01/24 04:45 Ordered Respiratory Therapy Assessment DAILY RT 08/31/24 20:52 Active Medication Summary Generic Name Dose Route Start Last Admin Trade Name Freq PRN Reason Stop Dose Admin Vancomycin HCl 1 gm in 200 mls @ 125 mls/hr 08/31/24 20:53 08/31/24 22:00 Vancomycin 1 Gram/200 Ml Bag IV 08/31/24 22:28 125 ml/hr STAT ONE 125 mls/hr Administration Discontinued Medications Generic Name Dose Route Start Last Admin Trade Name Freq PRN Reason Stop Dose Admin Albuterol/Ipratropium 3 ml 08/31/24 20:17 08/31/24 20:40 Ipratropium/Albuterol Sulfate 3 Ml Ampul.Neb IH 08/31/24 20:18 3 ml STAT ONE Administration Albuterol/Ipratropium Confirm 08/31/24 20:38 Ipratropium/Albuterol Sulfate 3 Ml Ampul.Neb Administered 08/31/24 20:39 Dose 3 ml IH .STK-MED ONE Methylprednisolone Sodium 0 mg 08/31/24 20:17 08/31/24 20:34 Succinate 125 mg/ Sterile IV 08/31/24 20:18 125 mg Water 2 ml STAT ONE Administration Piperacillin Sod/Tazobactam 100 mls @ 200 mls/hr 08/31/24 20:53 08/31/24 21:51 Sod 3.375 gm/ Sodium Chloride IV 08/31/24 21:22 Infused STAT ONE Infusion Sodium Chloride Confirm 08/31/24 21:19 Sodium Chloride 100ml Mini-Bag Plus Administered 08/31/24 21:20 Dose 100 mls @ ud IV .STK-MED ONE Vancomycin HCl Confirm 08/31/24 21:57 Vancomycin 1 Gram/200 Ml Bag Administered 08/31/24 21:58 Dose 1 gm in 200 mls @ ud IV .STK-MED ONE Methylprednisolone Sodium Succinate Confirm 08/31/24 20:32 Methylprednis Sod Succ 125 Mg/2 Ml Vial Administered 08/31/24 20:33 Dose 125 mg .ROUTE .STK-MED ONE Piperacillin Sod/Tazobactam Sod Confirm 08/31/24 21:19 Piperacillin/Tazobactam Sodium 3.375 Gm Vial Administered 08/31/24 21:20 Dose 3.375 gm IV .STK-MED ONE Lab/Rad Data: Laboratory Result Diagrams 08/31/24 20:30 08/31/24 20:25 Laboratory Results 08/31/24 08/31/24 08/31/24 Range/Units 20:39 20:30 20:25 WBC 10.7 H (3.98-10.04) x10^3/uL RBC 4.40 (3.93-5.22) x10^6/uL Hgb 11.8 (11.2-15.7) g/dL Hct 36.0 (34.1-44.9) % MCV 81.8 (79.4-94.8) fL MCH 26.8 (25.6-32.2) pg MCHC 32.8 (32.2-35.5) g/dL RDW 14.3 (11.7-14.4) % Plt Count 427 H (182-369) x10^3/uL MPV 9.8 (9.4-12.3) fL Gran % 80.3 H (34.0-71.1) % Immature Gran % (Auto) 0.6 H (0.001-0.429) % Nucleat RBC Rel Count 0.0 (0.00-0.2) % Eos # (Auto) 0.36 (0.04-0.36) x10^3/uL Immature Gran # (Auto) 0.06 H (0.001-0.031) x10^3u/L Absolute Lymphs (auto) 0.61 L (1.18-3.74) x10^3/uL Absolute Monos (auto) 1.00 H (0.24-0.86) x10^3/uL Absolute Nucleated RBC 0.00 (0.00-0.012) x10^3u/L Lymphocytes % 5.7 L (19.3-51.7) % Monocytes % 9.4 (4.7-12.5) % Eosinophils % 3.4 (0.7-5.8) % Basophils % 0.6 (0.1-1.2) % Absolute Granulocytes 8.57 H (1.56-6.13) x10^3/uL Basophils # 0.06 (0.01-0.08) x10^3/uL Puncture Site pCO2 (35-45) mmHg pO2 (75-100) mmHg Base Excess (-2.0-2.0) O2 Saturation (94-100) g/dF ABG pH (7.35-7.45) ABG HCO3 (22-28) ABG O2 Sat (Measured) (95-100) % Chavez Test A-a Gradient a/A Ratio Hemoglobin Carboxyhemoglobin (0.0-6.9) % THgb Methemoglobin (1.4-1.5) % Potassium (3.5-5.1) Temperature C POC O2 Flow Rate % Sodium (135-145) mmol/L Chloride (98-107) mmol/L Carbon Dioxide (22-30) mmol/L Anion Gap (5-15) MEQ/L BUN (7-17) mg/dL Creatinine (0.52-1.04) mg/dL Estimated GFR ML/MIN Glucose (74-106) mg/dL Lactic Acid (0.4-2.0) Calcium (8.4-10.2) mg/dL Total Bilirubin (0.2-1.3) mg/dL AST (14-36) U/L ALT (0-35) U/L Alkaline Phosphatase (38-126) U/L Troponin I < 0.012 (0.000-0.033) ng/mL NT-Pro-B Natriuret Pep (<300) pg/mL Serum Total Protein (6.3-8.2) g/dL Albumin (3.5-5.0) g/dL Influenza Type A Ag NEGATIVE (NEGATIVE) Influenza Type B Ag NEGATIVE (NEGATIVE) RSV (PCR) NEGATIVE (NEGATIVE) SARS-CoV-2 (PCR) NEGATIVE (NEGATIVE) 08/31/24 08/31/24 08/31/24 Range/Units 20:25 20:25 20:25 WBC (3.98-10.04) x10^3/uL RBC (3.93-5.22) x10^6/uL Hgb (11.2-15.7) g/dL Hct (34.1-44.9) % MCV (79.4-94.8) fL MCH (25.6-32.2) pg MCHC (32.2-35.5) g/dL RDW (11.7-14.4) % Plt Count (182-369) x10^3/uL MPV (9.4-12.3) fL Gran % (34.0-71.1) % Immature Gran % (Auto) (0.001-0.429) % Nucleat RBC Rel Count (0.00-0.2) % Eos # (Auto) (0.04-0.36) x10^3/uL Immature Gran # (Auto) (0.001-0.031) x10^3u/L Absolute Lymphs (auto) (1.18-3.74) x10^3/uL Absolute Monos (auto) (0.24-0.86) x10^3/uL Absolute Nucleated RBC (0.00-0.012) x10^3u/L Lymphocytes % (19.3-51.7) % Monocytes % (4.7-12.5) % Eosinophils % (0.7-5.8) % Basophils % (0.1-1.2) % Absolute Granulocytes (1.56-6.13) x10^3/uL Basophils # (0.01-0.08) x10^3/uL Puncture Site LEFT BRACHIAL pCO2 28 L (35-45) mmHg pO2 150 H* (75-100) mmHg Base Excess 6.4 H (-2.0-2.0) O2 Saturation 95.2 (94-100) g/dF ABG pH 7.60 H* (7.35-7.45) ABG HCO3 27.5 (22-28) ABG O2 Sat (Measured) 99.5 (95-100) % Chavez Test NOT APPLICABLE A-a Gradient 528 a/A Ratio 0.22 Hemoglobin 12.3 Carboxyhemoglobin 3.4 (0.0-6.9) % THgb Methemoglobin 0.9 L (1.4-1.5) % Potassium 4.3 4.1 (3.5-5.1) Temperature 37.0 C POC O2 Flow Rate 100 % Sodium 134 L (135-145) mmol/L Chloride 94 L (98-107) mmol/L Carbon Dioxide 27 (22-30) mmol/L Anion Gap 16.5 H (5-15) MEQ/L BUN 14 (7-17) mg/dL Creatinine 0.56 (0.52-1.04) mg/dL Estimated GFR 107.1 ML/MIN Glucose 130 H (74-106) mg/dL Lactic Acid 1.3 (0.4-2.0) Calcium 8.5 (8.4-10.2) mg/dL Total Bilirubin 0.50 (0.2-1.3) mg/dL AST 72 H (14-36) U/L ALT 44 H (0-35) U/L Alkaline Phosphatase 184 H (38-126) U/L Troponin I (0.000-0.033) ng/mL NT-Pro-B Natriuret Pep 91.9 (<300) pg/mL Serum Total Protein 7.0 (6.3-8.2) g/dL Albumin 3.4 L (3.5-5.0) g/dL Influenza Type A Ag (NEGATIVE) Influenza Type B Ag (NEGATIVE) RSV (PCR) (NEGATIVE) SARS-CoV-2 (PCR) (NEGATIVE) - Progress Progress: improved Air Movement: good Progress Note: I consulted with hospitalist Dr. Pal. In light of patient's worsening respiratory status we both feel that patient requires a higher level of care including a mingler operator and an infectious disease specialist. We will transfer patient. [facility] they have no beds available. We will try a [facility] 08/31/24 20:[address] Santa at [id number]. They advised to attempt to decrease the oxygen supplementation to 8 L nasal cannula. Patient desatted. Patient currently on oxime mask 15 L and is oxygenating at 94 to 95% she appears comfortable. Patient is a 54-year-old female presents to our ED for evaluation of shortness of breath. X-ray shows bilateral pulmonary infiltrates worse as compared to las t week. Patient currently on outpatient oral antibiotics. However we administered a dose of vancomycin and Zosyn. Laboratory workup otherwise essentially nonremarkable. Patient appears comfortable. Patient will be transferred for higher level of care. Plan of care discussed with patient. She agrees to transfer to [facility] for further evaluation and treatment. Portions of this note were created with voice recognition technology. There may be grammatical, spelling, punctuation or sound alike errors Complexity of problem addressed is moderate acute complicated. No critical care time. Complexity of data reviewed and analyzed is extensive. Test ordered chest reviewed results analyzed and correlated clinically with history and physical exam. Risk of complication and or risk of morbidity/mortality of patient management is high. Patient requires transfer to higher level of care. Vital stable. Time spent to transfer patient is approximately 20 minutes. Plan of care established for shared decision making. No social determinants of health present to impede follow-up. Patient accepted by at 2033 08/31/24 22:19 Blood Culture(s) Obtained: Yes Antibiotics given: Yes Counseled pt/family regarding: lab results, diagnosis, rad results - Departure Departure Disposition: Transfer Clinical Impression: Hypoxia, Pneumonia, Acute exacerbation of chronic obstructive pulmonary disease (COPD) Condition: Stable Critical Care Time: No Referrals: CONNOR ORCA, CREDIT REPRESENTATIVE [Primary Care Provider] - Follow up/PCP as directed Instructions: Chronic Obstructive Pulmonary Disease
[2024-08-31] MEDS: solu-MEDROL 125 MG, Sterile H2O 10 ml 2 ML IV ONE (20:34)
[2024-08-31 20:35] LABS: A-aADO2 528; ABG HEMOGLOBIN 12.3; ABG POTASSIUM 4.3 (3.5-5.1); ARTERIAL BLD GAS O2 SATURATION 99.5 % (95-100); ARTERIAL BLOOD GAS BASE EXCESS 6.4 (-2.0-2.0); ARTERIAL BLOOD GAS FIO2 100 %; ARTERIAL BLOOD GAS PCO2 28 mmHg (35-45); ARTERIAL BLOOD GAS PO2 150 mmHg (75-100); CARBOXYHEMOGLOBIN 3.4 % THgb (0.0-6.9); HCO3- 27.5 (22-28); HGB O2 SAT 95.2 g/dF (94-100); Lactic Acid 1.3 (0.4-2.0); Methhemoglobin 0.9 % (1.4-1.5); paO2 pAO1 0.22
[2024-08-31 20:36] LABS: ABG SITE LEFT BRACHIAL
[2024-08-31] MEDS ORDERED: DUONEB 0.5-3 MG/3 ml Neb IH ONE (20:38)
[2024-08-31] MEDS: DUONEB 0.5-3 MG/3 ml Neb IH ONE (20:40)
[2024-08-31 20:42] LABS: Absolute Neutrophil Ct (ANC) 8.57 x10^3/uL (1.56-6.13); BASOPHIL % 0.6 % (0.1-1.2); Basophil (Absolute #) 0.06 x10^3/uL (0.01-0.08); Eosinophil % 3.4 % (0.7-5.8); Eosinophil (Absolute #) 0.36 x10^3/uL (0.04-0.36); Hemoglobin 11.8 g/dL (11.2-15.7); IMMATURE GRAN # 0.06 x10^3u/L (0.001-0.031); IMMATURE GRAN % 0.6 % (0.001-0.429); Lymphocyte (Absolute #) 0.61 x10^3/uL (1.18-3.74); Lymphocytes % 5.7 % (19.3-51.7); Mean Cell Volume 81.8 fL (79.4-94.8); Mean Corpuscular Hemoglobin 26.8 pg (25.6-32.2); Mean Corpuscular Hgb Concent. 32.8 g/dL (32.2-35.5); Mean Platelet Volume 9.8 fL (9.4-12.3); Monocytes % 9.4 % (4.7-12.5); Neutrophil % 80.3 % (34.0-71.1); Platelet Count 427 x10^3/uL (182-369); Red Cell Distribution Width 14.3 % (11.7-14.4); White Blood Count 10.7 x10^3/uL (3.98-10.04)
[2024-08-31 20:55] LABS: ALBUMIN 3.4 g/dL (3.5-5.0); ANION GAP 16.5 MEQ/L (5-15); BILIRUBIN,TOTAL 0.5 mg/dL (0.2-1.3); Calcium 8.5 mg/dL (8.4-10.2); Creatinine 1 0.56 mg/dL (0.52-1.04); EST GLOMERULAR FILTRATION RATE 107.1 ML/MIN; Potassium 4.1 mmol/L (3.5-5.1)
[2024-08-31 21:17] LABS: INFLUENZA A NEGATIVE (NEGATIVE); INFLUENZA B NEGATIVE (NEGATIVE); RESPIRATORY SYNCTIAL VIRUS NEGATIVE (NEGATIVE); SARS-CoV-2 Xpert Express NEGATIVE (NEGATIVE)
[2024-08-31] MEDS ORDERED: PIPERACILLIN/TAZOBACTAM IV ONE (21:19)
[2024-08-31] MEDS ORDERED: Sodium Chloride 100ML MINI-BAG PLUS 100 ML IV ONE (21:19)
[2024-08-31] MEDS: PIPERACILLIN/TAZOBACTAM 3.375 GM in Sodium Chloride 100ML MINI-BAG PLUS 100 ML IV ONE (21:21)
[2024-08-31] MEDS ORDERED: VANCOMYCIN 1 GRAM/200 ML BAG 1 GM/200 ML PIGGYBACK IV ONE (21:57)
[2024-08-31] MEDS: VANCOMYCIN 1 GRAM/200 ML BAG 1 GM/200 ML PIGGYBACK IV ONE (22:00)
[2024-09-01 00:02] VITALS: BP 113/68; PULSE 94; RESP 33; O2SAT 97
--- NOTE | 2024-09-01 08:40 | XRAY ---
Indication: Short of breath. Comparison: August 23, 2024 Portable chest again demonstrates marked diffuse bilateral patchy consolidating/nonconsolidating airspace disease with tiny left effusion minimally worsened. Heart not enlarged. No new cardiopulmonary abnormalities.
== END 2024-09-01 00:16 | disposition short-term general hospital (02) ==
LOC: ED 20:11
DX: J18.9 Pneumonia, unspecified organism (principal); J44.1 Chronic obstructive pulmonary disease with (acute) exacerbation; J80 Acute respiratory distress syndrome; Z79.899 Other long term (current) drug therapy; Z72.0 Tobacco use
CPT/HCPCS: 0241U; 36415; 36600; 71045; 80053; 82375; 82803; 83605; 83880; 84484; 85025; 87040; 93005; 93041; 94640; 94760; 96365; 96367; 96375; 99285; 96374; J2919; A9270-GY; J3370